=== PATIENT | female | born 1985 | race Caucasian/White ===

== ENCOUNTER 2019-04-19 11:07 | Inpatient (IN) | payer SELFPAY ==
[2019-04-19] VITALS (8 sets, daily range): BP systolic 114–124; BP diastolic 65–76; PULSE 110–122; RESP 16–26; TEMP 36.8–37.7; O2SAT 96–98; BMI 36.4
[2019-04-19 11:46] LABS: Add Manual Diff / Slide Review NO; Basophils Absolute Auto 100 /uL (0-100); Basophils Percent Auto 0.4 % (0-2); Eosinophils Absolute Auto 0 /uL (0-450); Hematocrit 35.5 % (36-46); INR 1.2 (0.9-1.3); Lymphocytes Absolute Auto 2500 /uL (1100-4500); Lymphocytes Percent Auto 12.6 % (25-40); Mean Corpuscular HGB Conc 33.9 % (30-36); Mean Corpuscular Hemoglobin 29.8 PG (26-34); Mean Corpuscular Volume 87.8 fL (80-100); Monocytes Absolute Auto 1100 /uL (0-900); Monocytes Percent Auto 5.3 % (3-14); Neutrophils Absolute Auto 16400 /uL (1500-7000); Neutrophils Percent Auto 81.7 % (50-75); Platelet Count 414 X10^3/uL (150-400); Prothrombin Time 14.1 SECONDS (10.1-12.7); Red Blood Cell Count 4.04 X10^6/uL (4.0-5.2)
[2019-04-19 11:49] LABS: PTT Partial Thromboplastin Tim 34 SECONDS (26.4-36.2)
[2019-04-19 11:51] LABS: Alanine Aminotransferase 33 IU/L (9-52); Albumin 4.2 g/dL (3.5-5.0); Albumin Globulin Ratio 1.2 (1.0-2.8); Alkaline Phosphatase 98 U/L (38-126); Aspartate Aminotransferase 28 IU/L (14-36); BUN Creatinine Ratio 14.4 (6-22); Blood Urea Nitrogen 13 mg/dL (7-17); Calcium 9.5 mg/dL (8.4-10.2); Carbon Dioxide 28 mmol/L (22-32); Chloride 101 mmol/L (98-107); Estimated Glomerular Filt Rate > 60.0 mL/min (>60); Globulin 3.6 g/dL (1.7-4.1); Glucose 129 mg/dL (70-100); HEMOLYSIS < 15 (0-50); Lipase 54 U/L (23-300); Potassium 4.1 mmol/L (3.4-5.1); Sodium 136 mmol/L (137-145); Total Protein 7.8 g/dL (6.3-8.2)
--- NOTE | 2019-04-19 11:59 | ED_ITS ---
HPI - Abdominal Pain General Chief Complaint: Abdominal Pain Stated Complaint: lower rt quad pain/n&V/fever last night Time Seen by Provider: 04/19/19 11:48 Source: patient Mode of arrival: Ambulatory Limitations: no limitations History of Present Illness HPI narrative: Patient is a 33-year-old female with history of tubal ligation and PCOS presenting with sudden onset of right lower quadrant pain which started last night. She says that she has actually had off and on for about a week or so she has put heating pad on it has progressively gotten worse. Hurts every time she moves. She denies any fevers or chills. 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 She had a UTI 2 weeks ago unsure what antibiotic she was on. She was seen by her PCP today who did a bimanual exam and noted that she had significant right adnexal tenderness. Sent to the ED for further evaluation. I spoke with PCP who read records to me: Initially seen March 19 diagnosed with UTI which grew E coli she was put on Septra. Seen again March 28 had a repeat urine, not sure she was put on more antibiotics at that time. Seen again on April 04 thought to have a yeast infection she had a Pap smear an STD screening all was negative except for HSV 2. Seen again on April 11 she was empirically given azithromycin and Rocephin. Related Data Home Medications Medication Instructions Recorded Confirmed multivitamin 1 tab PO DAILY #0 10/05/11 04/19/19 acyclovir 400 mg PO [id number] 04/19/19 04/19/19 Allergies Allergy/AdvReac Type Severity Reaction Status Date / Time No Known Drug Allergies Allergy Verified 04/19/19 12:19 Review of Systems Review of Systems Narrative: GENERAL: Denies chills, fatigue, malaise, fever, sweats, travel HEENT: Denies sinus pain, ear pain, sore throat, difficulty swallowing, neck pain RESPIRATORY: Denies dyspnea, cough, wheezing, hemoptysis, sputum. CARDIOVASCULAR: Denies chest pain, palpitations, orthopnea, edema GASTROINTESTINAL: See HPI : See HPI MUSCULOSKELETAL: Denies weakness, joint pain, or bony pain SKIN: No rash, no erythema, no pruritus NEUROLOGIC: Denies weakness, dizziness, headache, numbness, change in speech, confusion PSYCHIATRIC: No concerning psychosocial issues. 12 point review of systems is negative except for those stated above and HPI PFSH Medical History Genital herpes (Acute) Surgical History History of third molar tooth extraction Status post tubal ligation (10/09/15) Social History Smoking Status: Never smoker Family History (Updated 04/19/19 @ 16:41 by Bere Mahajan MD) Grandfather Cancer Social History Smoking Status: Never smoker Exam Initial Vital Signs Initial Vital Signs: Vital Signs Temperature 98.9 F 04/19/19 11:21 Pulse Rate 110 H 04/19/19 11:21 Respiratory Rate 20 04/19/19 11:21 Blood Pressure 118/75 04/19/19 11:21 Pulse Oximetry 97 04/19/19 11:21 GENERAL: Well-appearing, well-nourished and in no acute distress. HEENT: Head atraumatic,EOMI, pupils reactive, face symmetric CARDIOVASCULAR: Regular rate and rhythm without murmurs, rubs or gallops. RESPIRATORY: Breath sounds equal bilaterally, no wheezes rales or rhonchi. ABDOMEN: Soft, right lower quadrant tenderness no guarding or rebound, no distention mild right upper quadrant pain with positive Haert sign as well. Pelvic: White thick discharge noted no foul smell. Right adnexal tenderness no cervical tenderness no left adnexal tenderness EXTREMITIES: Normal range of motion, no clubbing or edema. Neurovascularly intact NEUROLOGICAL: Alert and oriented x4.Normal gait and speech. Cranial nerves II through XII grossly intact. SKIN: Warm, dry, no laceration, no petechiae, no rashes or lesions. Course Orders Ordered: ED Orders 04/19/19 11:30 Complete Blood Count AUTO DIFF Stat Comprehensive Metabolic Panel Stat Lipase Stat Partial Thromboplastin Time Stat Prothrombin Time INR Stat 04/19/19 12:16 US abdomen limited Stat US pelvic complete Stat 04/19/19 14:01 CT abdomen pelvis w con Stat 04/19/19 14:44 Urine Culture Stat Urine Microscopic Stat 04/19/19 15:28 Lactate (Lactic Acid) Stat Procalcitonin Stat 04/19/19 15:39 Blood Culture Stat 04/19/19 16:00 Genital Culture Stat Wet Prep Tric BV Denisse Stat 04/19/19 16:04 Chlamydia/Gonorrhea RNA APTIMA Stat Discontinued Medications Ceftriaxone Sodium/Dextrose (Rocephin) 2 gm in 50 mls @ 100 mls/hr IV NOW ONE Stop: 04/19/19 16:33 Last Infusion: 04/19/19 17:12 Dose: 0 mls/hr Documented by: Admin: 04/19/19 16:29 Dose: 100 mls/hr Documented by: BTONER Metronidazole (Flagyl) 500 mg in 100 mls @ 100 mls/hr IV NOW ONE Stop: 04/19/19 17:02 Last Admin: 04/19/19 17:39 Dose: 100 mls/hr Documented by: BTONER Sodium Chloride (Normal Saline 0.9%) 1,000 mls @ 1,000 mls/hr IV BOLUS ONE Stop: 04/19/19 17:09 Last Admin: 04/19/19 16:27 Dose: 1,000 mls/hr Documented by: BTONER Ketorolac Tromethamine (Toradol) 30 mg IV NOW ONE Stop: 04/19/19 12:17 Last Admin: 04/19/19 12:32 Dose: 30 mg Documented by: BTONER Morphine Sulfate (Morphine) 4 mg IV NOW ONE Stop: 04/19/19 16:05 Last Admin: 04/19/19 16:29 Dose: 4 mg Documented by: BTONER Vital Signs Vital signs: Vital Signs - 8 hr 04/19/19 11:21 04/19/19 15:32 04/19/19 16:00 Temperature 98.9 F Pulse Rate 110 H 113 H Respiratory Rate 20 18 Blood Pressure 118/75 Blood Pressure [Right Arm] 123/72 121/70 Pulse Oximetry 97 98 04/19/19 16:40 04/19/19 17:00 Temperature Pulse Rate 120 H 122 H Respiratory Rate 18 17 Blood Pressure Blood Pressure [Right Arm] 121/70 124/76 Pulse Oximetry 98 97 MDM - Abdominal Pain Lab Data Attestation: I reviewed the patient's lab results. Result diagrams: 04/19/19 11:30 04/19/19 11:30 Labs: Lab Results 10/11/0204/19/19 04/19/19 Range/Units 11:30 11:30 11:30 WBC 20.0 H (4.5-11.0) X10^3/uL RBC 4.04 (4.0-5.2) X10^6/uL Hgb 12.0 (12.0-16.0) g/dL Hct 35.5 L (36-46) % MCV 87.8 (80-100) fL MCH 29.8 (26-34) PG MCHC 33.9 (30-36) % RDW 14.0 (11.6-14.8) % Plt Count 414 H (150-400) X10^3/uL Neut % (Auto) 81.7 H (50-75) % Lymph % (Auto) 12.6 L (25-40) % [place] % (Auto) 5.3 (3-14) % Eos % (Auto) 0.0 L (2-4) % Baso % (Auto) 0.4 (0-2) % Neut # (Auto) 32974 H (0606-0771) /uL Lymph # (Auto) 2500 (2747-2667) /uL [place] # (Auto) 1100 H (0-900) /uL Eos # (Auto) 0 (0-450) /uL Baso # (Auto) 100 (0-100) /uL PT 14.1 H (10.1-12.7) SECONDS INR 1.2 (0.9-1.3) APTT 34 (26.4-36.2) SECONDS Sodium 136 L (137-145) mmol/L Potassium 4.1 (3.4-5.1) mmol/L Chloride 101 (98-107) mmol/L Carbon Dioxide 28 (22-32) mmol/L BUN 13 (7-17) mg/dL Creatinine 0.90 (0.52-1.04) mg/dL Estimated GFR > 60.0 (>60) mL/min BUN/Creatinine Ratio 14.4 (6-22) Glucose 129 H (70-100) mg/dL Lactate (0.7-2.1) mmol/L Calcium 9.5 (8.4-10.2) mg/dL Total Bilirubin 1.0 (0.2-1.3) mg/dL AST 28 (14-36) IU/L ALT 33 (9-52) IU/L Alkaline Phosphatase 98 (38-126) U/L Total Protein 7.8 (6.3-8.2) g/dL Albumin 4.2 (3.5-5.0) g/dL Globulin 3.6 (1.7-4.1) g/dL Albumin/Globulin Ratio 1.2 (1.0-2.8) Lipase 54 (23-300) U/L Procalcitonin (<0.5) ng/mL Urine RBC (0-5/HPF) Urine WBC (0-5/HPF) Ur Squamous Epith Cells (0-5/HPF) Amorphous Sediment Urine Bacteria (None) Urine Mucus (Negative) Ur Culture Indicated? 04/19/19 04/19/19 04/19/19 Range/Units 14:44 15:28 15:28 WBC (4.5-11.0) X10^3/uL RBC (4.0-5.2) X10^6/uL Hgb (12.0-16.0) g/dL Hct (36-46) % MCV (80-100) fL MCH (26-34) PG MCHC (30-36) % RDW (11.6-14.8) % Plt Count (150-400) X10^3/uL Neut % (Auto) (50-75) % Lymph % (Auto) (25-40) % [place] % (Auto) (3-14) % Eos % (Auto) (2-4) % Baso % (Auto) (0-2) % Neut # (Auto) (9141-4968) /uL Lymph # (Auto) (2667-1995) /uL [place] # (Auto) (0-900) /uL Eos # (Auto) (0-450) /uL Baso # (Auto) (0-100) /uL PT (10.1-12.7) SECONDS INR (0.9-1.3) APTT (26.4-36.2) SECONDS Sodium (137-145) mmol/L Potassium (3.4-5.1) mmol/L Chloride (98-107) mmol/L Carbon Dioxide (22-32) mmol/L BUN (7-17) mg/dL Creatinine (0.52-1.04) mg/dL Estimated GFR (>60) mL/min BUN/Creatinine Ratio (6-22) Glucose (70-100) mg/dL Lactate 1.0 (0.7-2.1) mmol/L Calcium (8.4-10.2) mg/dL Total Bilirubin (0.2-1.3) mg/dL AST (14-36) IU/L ALT (9-52) IU/L Alkaline Phosphatase (38-126) U/L Total Protein (6.3-8.2) g/dL Albumin (3.5-5.0) g/dL Globulin (1.7-4.1) g/dL Albumin/Globulin Ratio (1.0-2.8) Lipase (23-300) U/L Procalcitonin 0.45 (<0.5) ng/mL Urine RBC 1-5/hpf (0-5/HPF) Urine WBC 5-10/hpf H (0-5/HPF) Ur Squamous Epith Cells 1-5 /hpf (0-5/HPF) Amorphous Sediment 2+ Urine Bacteria Moderate (10-30) H (None) Urine Mucus 2+ H (Negative) Ur Culture Indicated? Specimen cultured Point of care testing: Point of Care Testing Test Results Negative Urine Dip Bedside Urine Glucose Negative Bedside Urine Bilirubin + 1 Bedside Urine Ketone +/- 5 Urine Specific [place] 1.015 Bedside Urine Occult Blood + Bedside Urine pH 6.0 Bedside Urine Protein + 30 Bedside Urine Urobilinogen +/- 1mg Bedside Urine Nitrite - Negative Bedside Urine Leukocytes + 70 Esterase Imaging Data US - abdomen: Radiologist's impression: PROCEDURE: US ABDOMEN LIMITED INDICATIONS: RUQ PAIN TECHNIQUE: Real-time focused scanning was performed of the abdomen, with image documentation. COMPARISON: None. FINDINGS: Liver unremarkable, although mildly enlarged measuring 19.2 cm. Gallbladder unremarkable except for 2 mm incidental polyp. No gallstones. No wall thickening, para cholecystic fluid or sonographic Heart sign. An umbilical dilatation. The pancreas is unremarkable. Right kidney measures 11.0 cm in unremarkable. Left kidney within normal limits measuring 12.0 cm IMPRESSION: Incidental gallbladder polyp. No evidence of acute cholecystitis. Dictated by: Giuliano Foreman M.D. on 04/19/2019 at 13:38 pelvic us: Radiologist's impression: PROCEDURE: US PELVIC COMPLETE INDICATIONS: RLQ PAIN, HX OF PCOS TECHNIQUE: Real-time scanning was performed of the pelvic organs, with image documentation. Additional endovaginal scanning was necessary due to incomplete visualization of the adnexal and endometrial structures by transabdominal scanning. COMPARISON: [facility], PELVIC COMPLETE, 10/06/2015, 12:02. FINDINGS: Transabdominal scanning: Limited scanning through the kidneys shows no hydronephrosis. Mildly complex fluid in the region of the right ovary Endovaginal scanning: Uterus: Uterus is normal in size at 10.0 x 3.9 cm. The endometrium measures 8- 9 mm in combined thickness. Uterus is anteverted. The right uterine horn appears mildly prominent with hyperemia, nonspecific finding. 8mm possible ureterocele versus adherent non-shadowing calculus. Ovaries: The ovaries are unremarkable bilaterally, demonstrating expected physiologic follicular change. The right ovary measures 5.2 x 3.0 x 3.1 cm. The left ovary measures 4.7 x 3.0 x 2.8 cm IMPRESSION: Unremarkable appearance of the ovaries. Mild complex fluid in the region of the right adnexa, nonspecific finding. There is also prominence and hyperemic appearance of the right uterine horn wh ich could represent inflammation however technically nonspecific Incidentally noted left-sided ureterocele versus adherent calculus (given patient age). Dictated by: Giuliano Foreman M.D. on 04/19/2019 at 13:39 Approved by: Giuliano Foreman M.D. on 04/19/2019 at 13:46 CT scan - abdomen: Radiologist's impression: PROCEDURE: CT ABDOMEN PELVIS W CON INDICATIONS: rlq pain TECHNIQUE: After the administration of intravenous contrast, 5 mm thick sections acquired from the diaphragm to the symphysis. 5 mm coronal and sagittal reformats were acquired. For radiation dose reduction, the following was used: automated exposure control, adjustment of mA and/or kV according to patient size. COMPARISON: [facility], PELVIC COMPLETE, 04/19/2019, 12:51. FINDINGS: Image quality: Excellent. ABDOMEN: Lung bases: Lung bases are clear. Heart size is normal. Solid organs: Liver is normal in size and enhancement. Gallbladder is normal limits. Biliary system is non dilated. Pancreas enhances normally. Spleen is normal in size and enhancement. No adrenal nodules. Kidneys demonstrate normal size and enhancement, without hydronephrosis. Peritoneum and bowel: The appendix is visualized and is normal. Mild pericecal inflammatory changes are noted. There is mild cecal wall thickening. Mildly distended loops of fluid-filled small bowel noted in the right lower quadrant including the terminal ileum. Mild inflammatory changes noted adjacent to the right fallopian tube. No free air. A small amount of free fluid noted in the cul-de-sac of the pelvis. There is a small, approximately 2 cm in diameter fluid collection with partial peripheral enhancement situated between the cecum and the broad ligament which may represent early abscess. Nodes and vessels: No retroperitoneal or mesenteric adenopathy by size criteria. Aorta and inferior vena cava are normal in size. Miscellaneous: No ventral hernias. PELVIS: Genitourinary: Bladder wall thickness is normal. Miscellaneous: No inguinal hernias. Bilateral enlarged inguinal lymph nodes are noted. Bones: No suspicious bony lesions. No vertebral body compression fractures. IMPRESSION: 1. No evidence of appendicitis. 2. Nonspecific right lower quadrant inflammatory changes involving the cecum, loops of small bowel in the right fallopian tube. Differential includes colitis, inflammatory bowel disease, typhlitis or salpingitis. 3. 2 cm partially walled off right lower quadrant fluid collection situated between the cecum and the broad ligament concerning for early abscess. 4. Bilateral inguinal lymphadenopathy which could be reactive or neoplastic. 5. Findings discussed with Dr. Sage on 04/19/2019 at 1505 hrs. Dictated by: Rose Marie Jones MD, PhD on 04/19/2019 at 14:36 MDM Narrative Medical decision making narrative: Patient is quite tender in her right lower quadrant. Ultrasound did show complex fluid in the right adnexa and she does have leukocytosis of 20,000. Will get a CT. CT shows probable abscess of 2 cm in the right lower quadrant between the cecum and broad ligament. I spoke with Radiology who could not determine if this was a tubo-ovarian abscess or s omething else. Initially consulted surgery Dr. Mahajan, who saw patient in the ED at bedside agreed with buffing wheel raker consultation likely admit to Medicine with broad-spectrum IV antibiotics and see how she responds. I spoke with buffing wheel raker Dr. Hernandez ENGRAVER COPPERPLATE, also evaluated in in the ED. Agrees with surgery IV antibiotics and surgery if no improvement. At this time agrees with Jen and Kulwinder Nelson, updated on patient's symptoms test results agrees with admission in antibiotic Discharge Plan Departure Patient Disposition: Admitted As Inpatient Clinical Impression: Right tubo-ovarian abscess Discharge Date/Time: 04/19/19 17:58 Admit Date/Time: 04/19/19 17:24 Admit Provider: Zoila Hernandez
--- NOTE | 2019-04-19 12:16 | DI.US.S_ITS ---
PROCEDURE: US ABDOMEN LIMITED INDICATIONS: RUQ PAIN TECHNIQUE: Real-time focused scanning was performed of the abdomen, with image documentation. COMPARISON: None. FINDINGS: Liver unremarkable, although mildly enlarged measuring 19.2 cm. Gallbladder unremarkable except for 2 mm incidental polyp. No gallstones. No wall thickening, para cholecystic fluid or sonographic Heart sign. An umbilical dilatation. The pancreas is unremarkable. Right kidney measures 11.0 cm in unremarkable. Left kidney within normal limits measuring 12.0 cm IMPRESSION: Incidental gallbladder polyp. No evidence of acute cholecystitis. Dictated by: Giuliano Foreman M.D. on 04/19/2019 at 13:38 Approved by: Giuliano Foreman M.D. on 04/19/2019 at 13:39
--- NOTE | 2019-04-19 12:16 | DI.US.S_ITS ---
PROCEDURE: US PELVIC COMPLETE INDICATIONS: RLQ PAIN, HX OF PCOS TECHNIQUE: Real-time scanning was performed of the pelvic organs, with image documentation. Additional endovaginal scanning was necessary due to incomplete visualization of the adnexal and endometrial structures by transabdominal scanning. COMPARISON: [facility], [place], PELVIC COMPLETE, 10/06/2015, 12:02. FINDINGS: Transabdominal scanning: Limited scanning through the kidneys shows no hydronephrosis. Mildly complex fluid in the region of the right ovary Endovaginal scanning: Uterus: Uterus is normal in size at 10.0 x 3.9 cm. The endometrium measures 8-9 mm in combined thickness. Uterus is anteverted. The right uterine horn appears mildly prominent with hyperemia, nonspecific finding. 8mm possible ureterocele versus adherent non-shadowing calculus. Ovaries: The ovaries are unremarkable bilaterally, demonstrating expected physiologic follicular change. The right ovary measures 5.2 x 3.0 x 3.1 cm. The left ovary measures 4.7 x 3.0 x 2.8 cm IMPRESSION: Unremarkable appearance of the ovaries. Mild complex fluid in the region of the right adnexa, nonspecific finding. There is also prominence and hyperemic appearance of the right uterine horn which could represent inflammation however technically nonspecific Incidentally noted left-sided ureterocele versus adherent calculus (given patient age). Dictated by: Giuliano Foreman M.D. on 04/19/2019 at 13:39 Approved by: Giuliano Foreman M.D. on 04/19/2019 at 13:46
[2019-04-19] MEDS: KETOROLAC 60 MG/2 ML VIAL 30 MG IV (12:32)
--- NOTE | 2019-04-19 14:01 | DI.CT.S_ITS ---
PROCEDURE: CT ABDOMEN PELVIS W CON INDICATIONS: rlq pain TECHNIQUE: After the administration of intravenous contrast, 5 mm thick sections acquired from the diaphragm to the symphysis. 5 mm coronal and sagittal reformats were acquired. For radiation dose reduction, the following was used: automated exposure control, adjustment of mA and/or kV according to patient size. COMPARISON: [facility], , [place] PELVIC COMPLETE, 04/19/2019, 12:51. FINDINGS: Image quality: Excellent. ABDOMEN: Lung bases: Lung bases are clear. Heart size is normal. Solid organs: Liver is normal in size and enhancement. Gallbladder is normal limits. Biliary system is non dilated. Pancreas enhances normally. Spleen is normal in size and enhancement. No adrenal nodules. Kidneys demonstrate normal size and enhancement, without hydronephrosis. Peritoneum and bowel: The appendix is visualized and is normal. Mild pericecal inflammatory changes are noted. There is mild cecal wall thickening. Mildly distended loops of fluid-filled small bowel noted in the right lower quadrant including the terminal ileum. Mild inflammatory changes noted adjacent to the right fallopian tube. No free air. A small amount of free fluid noted in the cul-de-sac of the pelvis. There is a small, approximately 2 cm in diameter fluid collection with partial peripheral enhancement situated between the cecum and the broad ligament which may represent early abscess. Nodes and vessels: No retroperitoneal or mesenteric adenopathy by size criteria. Aorta and inferior vena cava are normal in size. Miscellaneous: No ventral hernias. PELVIS: Genitourinary: Bladder wall thickness is normal. Miscellaneous: No inguinal hernias. Bilateral enlarged inguinal lymph nodes are noted. Bones: No suspicious bony lesions. No vertebral body compression fractures. IMPRESSION: 1. No evidence of appendicitis. 2. Nonspecific right lower quadrant inflammatory changes involving the cecum, loops of small bowel in the right fallopian tube. Differential includes colitis, inflammatory bowel disease, typhlitis or salpingitis. 3. 2 cm partially walled off right lower quadrant fluid collection situated between the cecum and the broad ligament concerning for early abscess. 4. Bilateral inguinal lymphadenopathy which could be reactive or neoplastic. 5. Findings discussed with Dr. Sage on 04/19/2019 at 1505 hrs. Dictated by: Rose Marie Jones MD, PhD on 04/19/2019 at 14:36 Approved by: Rose Marie Jones MD, PhD on 04/19/2019 at 15:07
[2019-04-19 15:11] LABS: RBC Urine 1-5/HPF (0-5/HPF); WBC Urine 5-10/HPF (0-5/HPF)
[2019-04-19 15:12] LABS: Amorphous Sediment Urine 2+; Bacteria Urine Moderate (10-30); Culture Indicated Urine Specimen Cultured; Mucus Urine 2+ (Negative); Squamous Epithelial Cell Urine 1-5 /HPF (0-5/HPF)
[2019-04-19 16:14] LABS: Procalcitonin 0.45 ng/mL (<0.5)
[2019-04-19] MEDS: SODIUM CHLORIDE 0.9% 1,000 ML 1000 ML IV (16:27)
[2019-04-19] MEDS: CEFTRIAXONE 2 GM/50 ML FROZ.PIGGY IV (16:29)
[2019-04-19] MEDS: MORPHINE 4 MG/ML INJ IV (16:29)
--- NOTE | 2019-04-19 16:35 | PM.CN ---
History of Present Illness Consult details Date Patient Seen: 04/19/19 Time Patient Seen: 16:36 Chief complaint: lower rt quad pain/n&V/fever last night Reason for consult: Possible colitis Requesting provider: Maria C Sage Narrative: This is a 33-year-old woman with history of obesity, herpes virus current we being treated, and tubal ligation comes into the ER today with complaint of 4 days of worsening abdominal pain, worst in the right lower quadrant. On CT scan she was found to have an inflammatory process which is described as a ?nonspecific right lower quadrant inflammatory process.Per the radiologist this imaging finding may indicate colitis, IBD, or inflammatory process of the tubo-ovarian structures. There is a 2 cm partially walled off fluid collection between the cecum and broad ligament. The patient denies any history of unexplained weight loss, rectal bleeding, melena, constipation, or diarrhea. However she has had diarrhea for the last few days while she has been having this pain. Her white blood cell count is 20. PFSH Medical History Genital herpes (Acute) Surgical History History of third molar tooth extraction Status post tubal ligation (10/09/15) Social History Smoking Status: Never smoker Family History (Updated 04/19/19 @ 16:41 by Bere Mahajan MD) Grandfather Cancer Social History Smoking Status: Never smoker Meds Home Medications and Allergies Home Medications Medication Instructions Recorded Confirmed Type multivitamin 1 tab PO DAILY #0 10/05/11 04/19/19 History acyclovir 400 mg PO [id number] 04/19/19 04/19/19 History Allergies Allergy/AdvReac Type Severity Reaction Status Date / Time No Known Drug Allergies Allergy Verified 04/19/19 12:19 Review of Systems Review of Systems Narrative: All systems reviewed and unremarkable except as noted in HPI and below Exam Vital Signs (past 8 hours): - 04/19/19 11:21 04/19/19 15:32 04/19/19 16:00 Temperature 98.9 F Pulse Rate 110 H 113 H Respiratory Rate 20 18 Blood Pressure 118/75 Blood Pressure [Right Arm] 123/72 121/70 Pulse Oximetry 97 98 Oxygen Delivery Method Room Air Narrative Exam Narrative: GENERAL: Well groomed and cooperative. Appears stated age. Answers questions promptly and appropriately. Vital signs noted. HENT: Normocephalic, atraumatic. Hearing intact. Oral mucosa is pink and moist. EYES: Conjunctiva pink, sclera white, no periorbital swelling. CARDIOVASCULAR: Regular rate. No pedal edema. RESPIRATORY: Normal respiratory rate, breathing comfortably on room air. GASTROINTESTINAL: Abdomen soft and non-distended; moderate tenderness to palpation in bilateral lower quadrants, right greater than left GENITALURINARY: No flank tenderness. MUSCULOSKELETAL: Normal gait and coordination. Equal tone and mass bilaterally. SKIN: Warm, dry, soft, appropriate color for ethnicity. No other lesions, rashes, or wounds. NEURO: Alert and Oriented X 3. Good coordination. No ataxia, or sensory deficits, or cognitive issues. PSYCH: Appropriate affect and mood. Objective Imaging CT scan - abdomen: Radiologist's impression: 2 04/19/19 14:01 Rose Marie Jones 04/19/19 12:16 Giuliano Foreman 04/19/19 12:16 Giuliano Foreman Jennifer L 33, [id number] [facility], Main ED R08 PROCEDURE: CT ABDOMEN PELVIS W CON INDICATIONS: rlq pain TECHNIQUE: After the administration of intravenous contrast, 5 mm thick sections acquired from the diaphragm to the symphysis. 5 mm coronal and sagittal reformats were acquired. For radiation dose reduction, the following was used: automated exposure control, adjustment of mA and/or kV according to patient size. COMPARISON: [facility], , [place] PELVIC COMPLETE, 04/19/2019, 12:51. FINDINGS: Image quality: Excellent. ABDOMEN: Lung bases: Lung bases are clear. Heart size is normal. Solid organs: Liver is normal in size and enhancement. Gallbladder is normal limits. Biliary system is non dilated. Pancreas enhances normally. Spleen is normal in size and enhancement. No adrenal nodules. Kidneys demonstrate normal size and enhancement, without hydronephrosis. Peritoneum and bowel: The appendix is visualized and is normal. Mild pericecal inflammatory changes are noted. There is mild cecal wall thickening. Mildly distended loops of fluid-filled small bowel noted in the right lower quadrant including the terminal ileum. Mild inflammatory changes noted adjacent to the right fallopian tube. No free air. A small amount of free fluid noted in the cul-de-sac of the pelvis. There is a small, approximately 2 cm in diameter fluid collection with partial peripheral enhancement situated between the cecum and the broad ligament which may represent early abscess. Nodes and vessels: No retroperitoneal or mesenteric adenopathy by size criteria. Aorta and inferior vena cava are normal in size. Miscellaneous: No ventral hernias. PELVIS: Genitourinary: Bladder wall thickness is normal. Miscellaneous: No inguinal hernias. Bilateral enlarged inguinal lymph nodes are noted. Bones: No suspicious bony lesions. No vertebral body compression fractures. IMPRESSION: 1. No evidence of appendicitis. 2. Nonspecific right lower quadrant inflammatory changes involving the cecum, loops of small bowel in the right fallopian tube. Differential includes colitis, inflammatory bowel disease, typhlitis or salpingitis. 3. 2 cm partially walled off right lower quadrant fluid collection situated between the cecum and the broad ligament concerning for early abscess. 4. Bilateral inguinal lymphadenopathy which could be reactive or neoplastic. 5. Findings discussed with Dr. Sage on 04/19/2019 at 1505 hrs. Dictated by: Rose Marie Jones MD, PhD on 04/19/2019 at 14:36 Approved by: Rose Marie Jones MD, PhD on 04/19/2019 at 15:07 Labs Result Diagrams: 04/19/19 11:30 04/19/19 11:30 Labs: Laboratory Results - last 24 hr 04/19/19 04/19/19 04/19/19 11:30 11:30 11:30 WBC 20.0 H RBC 4.04 Hgb 12.0 Hct 35.5 L MCV 87.8 MCH 29.8 MCHC 33.9 RDW 14.0 Plt Count 414 H Neut % (Auto) 81.7 H Lymph % (Auto) 12.6 L [place] % (Auto) 5.3 Eos % (Auto) 0.0 L Baso % (Auto) 0.4 Neut # (Auto) 58035 H Lymph # (Auto) 2500 [place] # (Auto) 1100 H Eos # (Auto) 0 Baso # (Auto) 100 PT 14.1 H INR 1.2 APTT 34 Sodium 136 L Potassium 4.1 Chloride 101 Carbon Dioxide 28 BUN 13 Creatinine 0.90 Estimated GFR > 60.0 BUN/Creatinine Ratio 14.4 Glucose 129 H Lactate Calcium 9.5 Total Bilirubin 1.0 AST 28 ALT 33 Alkaline Phosphatase 98 Total Protein 7.8 Albumin 4.2 Globulin 3.6 Albumin/Globulin Ratio 1.2 Lipase 54 Procalcitonin Urine RBC Urine WBC Ur Squamous Epith Cells Amorphous Sediment Urine Bacteria Urine Mucus Ur Culture Indicated? 04/19/19 04/19/19 04/19/19 14:44 15:28 15:28 WBC RBC Hgb Hct MCV MCH MCHC RDW Plt Count Neut % (Auto) Lymph % (Auto) [place] % (Auto) Eos % (Auto) Baso % (Auto) Neut # (Auto) Lymph # (Auto) [place] # (Auto) Eos # (Auto) Baso # (Auto) PT INR APTT Sodium Potassium Chloride Carbon Dioxide BUN Creatinine Estimated GFR BUN/Creatinine Ratio Glucose Lactate 1.0 Calcium Total Bilirubin AST ALT Alkaline Phosphatase Total Protein Albumin Globulin Albumin/Globulin Ratio Lipase Procalcitonin 0.45 Urine RBC 1-5/hpf Urine WBC 5-10/hpf H Ur Squamous Epith Cells 1-5 /hpf Amorphous Sediment 2+ Urine Bacteria Moderate (10-30) H Urine Mucus 2+ H Ur Culture Indicated? Specimen cultured Assessment & Plan Assessment and plan (1) Right-sided abdominal pain of unknown cause: Current visit: Yes Status: Acute (2) Intra-abdominal abscess: Current visit: Yes Status: Acute (3) Leukocytosis: Current visit: Yes Status: Acute Assessment & Plan narrative: This is a 33-year-old woman with a unclear right lower quadrant inflammatory process. She denies any history of swallowing fissure chicken bones or tooth pick which could cause a perforation resulting in this clinical picture. She denies any history that is indicative of inflammatory bowel disease, or neoplastic process. CT scan is inconsistent with appendicitis. The ER is planning to consult the CONTRACT TECHNICAL WRITER doctors. I will also follow along. At this point I would treat her with broad-spectrum antibiotics, and follow her clinically. If her white blood cell count and exam do not improve, I would go ahead with diagnostic laparoscopy, and treat what we find. If she does improve clinically on antibiotics I would consider reimaging her with ultrasound or possibly CT scan if necessary, to re-evaluate the inflammatory process and associated fluid collection in the abdomen at that time. Recommendations: Follow-up CONTRACT TECHNICAL WRITER consult further recommendations NPO except for clear liquids and meds Broad spectrum IV antibiotics Ambulate as tolerated Daily labs Repeat imaging if improving clinically Diagnostic laparoscopy if not improving Time Spent With Patient Time with patient: 25 - 35 minutes
[2019-04-19] MEDS: metroNIDAZOLE 500 MG/100 ML PIGGYBACK 100 MG IV ×2 (17:39→23:47)
--- NOTE | 2019-04-19 19:26 | PM.CN ---
History of Present Illness Consult details Date Patient Seen: 04/19/19 Time Patient Seen: 17:00 Chief complaint: lower rt quad pain/n&V/fever last night Reason for consult: Rule out PID Requesting provider: Maria C Sage Narrative: Patient is a 33-year-old para 3 status post tubal ligation who has been having right lower quadrant pain on and off for a week but had significant increase in pain today and was sent to the emergency room by her primary care physician Dr. Nielsen. Patient states that the pain started in the right lower quadrant, would come and go and she had some diarrhea. When the pain increased today she was feeling nauseated. The pain is better when she is lying still but increases with movement. She denies fevers. She denies any urinary symptoms. She has a new sexual partner and was recently diagnosed with HSV 2. Other than the tubal ligation the patient denies any abdominal surgery. Patient denies any other significant medical issues. After meeting with the patient I a was informed by Dr. Nielsen that the patient was treated for a UTI several weeks ago, returned with continued discomfort and was evaluated by Pap smear and culture was with negative GC and Chlamydia but positive HSV 2. She returns still uncomfortable so was given ceftriaxone and 1 g of azithromycin on 04/11/2019. Dr. Nielsen was concerned because of a remote history of a tooth abscess and a vulvar abscess that required 10 days of IV antibiotics. PENDING SALE TO [facility] Medical History Genital herpes (Acute) Surgical History History of third molar tooth extraction Status post tubal ligation (10/09/15) Social History Smoking Status: Never smoker Family History (Updated 04/19/19 @ 16:41 by Bere Mahajan MD) Grandfather Cancer Social History household members: family Smoking Status: Never smoker Meds Home Medications and Allergies Home Medications Medication Instructions Recorded Confirmed Type multivitamin 1 tab PO DAILY #0 10/05/11 04/19/19 History acyclovir 400 mg PO [id number] 04/19/19 04/19/19 History Allergies Allergy/AdvReac Type Severity Reaction Status Date / Time No Known Drug Allergies Allergy Verified 04/19/19 12:19 Exam Vital Signs (past 8 hours): - 04/19/19 15:32 04/19/19 16:00 04/19/19 16:40 Pulse Rate 113 H 120 H Respiratory Rate 18 18 Blood Pressure [Right Arm] 123/72 121/70 121/70 Pulse Oximetry 98 98 04/19/19 17:00 04/19/19 18:01 Pulse Rate 122 H 118 H Respiratory Rate 17 16 Blood Pressure [Right Arm] 124/76 114/75 Pulse Oximetry 97 96 Oxygen Delivery Method Room Air Narrative Exam Narrative: HEENT exam within normal limits. Lungs are clear to auscultation percussion. Heart is regular rate and rhythm tachycardic but no murmurs appreciated. No thyromegaly. Abdomen is soft with tenderness throughout the abdomen, more so in the right lower quadrant, without rebound. Extremities without edema and nontender. See 's note for pelvic exam which was not repeated. Objective Labs Result Diagrams: 04/19/19 11:30 04/19/19 11:30 Labs: Laboratory Results - last 24 hr 04/19/19 04/19/19 04/19/19 11:30 11:30 11:30 WBC 20.0 H RBC 4.04 Hgb 12.0 Hct 35.5 L MCV 87.8 MCH 29.8 MCHC 33.9 RDW 14.0 Plt Count 414 H Neut % (Auto) 81.7 H Lymph % (Auto) 12.6 L [place] % (Auto) 5.3 Eos % (Auto) 0.0 L Baso % (Auto) 0.4 Neut # (Auto) 19947 H Lymph # (Auto) 2500 [place] # (Auto) 1100 H Eos # (Auto) 0 Baso # (Auto) 100 PT 14.1 H INR 1.2 APTT 34 Sodium 136 L Potassium 4.1 Chloride 101 Carbon Dioxide 28 BUN 13 Creatinine 0.90 Estimated GFR > 60.0 BUN/Creatinine Ratio 14.4 Glucose 129 H Lactate Calcium 9.5 Total Bilirubin 1.0 AST 28 ALT 33 Alkaline Phosphatase 98 Total Protein 7.8 Albumin 4.2 Globulin 3.6 Albumin/Globulin Ratio 1.2 Lipase 54 Procalcitonin Urine RBC Urine WBC Ur Squamous Epith Cells Amorphous Sediment Urine Bacteria Urine Mucus Ur Culture Indicated? 04/19/19 04/19/19 04/19/19 14:44 15:28 15:28 WBC RBC Hgb Hct MCV MCH MCHC RDW Plt Count Neut % (Auto) Lymph % (Auto) [place] % (Auto) Eos % (Auto) Baso % (Auto) Neut # (Auto) Lymph # (Auto) [place] # (Auto) Eos # (Auto) Baso # (Auto) PT INR APTT Sodium Potassium Chloride Carbon Dioxide BUN Creatinine Estimated GFR BUN/Creatinine Ratio Glucose Lactate 1.0 Calcium Total Bilirubin AST ALT Alkaline Phosphatase Total Protein Albumin Globulin Albumin/Globulin Ratio Lipase Procalcitonin 0.45 Urine RBC 1-5/hpf Urine WBC 5-10/hpf H Ur Squamous Epith Cells 1-5 /hpf Amorphous Sediment 2+ Urine Bacteria Moderate (10-30) H Urine Mucus 2+ H Ur Culture Indicated? Specimen cultured Assessment & Plan Assessment and plan (1) Right-sided abdominal pain of unknown cause: Current visit: Yes Status: Acute (2) Intra-abdominal abscess: Current visit: Yes Status: Acute (3) Genital herpes: Current visit: Yes Status: Acute Assessment & Plan narrative: 33-year-old female with elevated white blood cell count, CT scan concerning for possible inflammation and early possible abscess in the right lower quadrant. It would be extremely unusual for a tubal ovarian abscess to form in a woman with a negative GC and chlamydia culture and prior tubal ligation. I discussed the case with who also is not sure of the cause for the CT findings. We discussed whether to do IV antibiotics with follow-up or proceed with laparoscopy for diagnosis. Decision was made to start IV antibiotics and monitor for improvement . If no improvement laparoscopy at that point. I also discuss this with Dr. Nielsen and her covering physician Dr. Buitrago.
[2019-04-19] MEDS: MORPHINE 2 MG/ML INJ IV ×3 (19:36→23:56)
--- NOTE | 2019-04-19 21:25 | P.HP_ITS ---
History of Present Illness History of Present Illness Date Patient Seen: 04/19/19 Time Patient Seen: 21:25 Chief complaint: lower rt quad pain/n&V/fever last night Narrative: 33 year old female is admitted from the ED secondary to right lower quadrant pain of unknown origin x 1 day, non-radiating. Reports that the pain woke her up from sleep last night and lasted for about 20 minutes. Prior to going to bed, she took a hot bath because she had been having diarrhea for the past 5 days. Has been feeling residual pain throughout the day today and her stomach continues to be tender. Associated bloating but not tympanic distention. She has been passing stool but they continue to get more watery. Denies melena, hematochezia, or mucous in her stools. Afebrile. Has had nausea but no vomiting. Her LMP was 02/26/19, has PCOS and is irregular. Had 2 days of light bleeding in March. It was not a true period. Underwent a BTL in 2015 after an IUD perforated her uterus and she needed to have it surgically removed. Uterine perforation was repaired with cautery. She had routine post- operative follow up and seemed to heal uneventfully from the procedure. Approximately 1 month ago, on 03/19/19, she was placed on a 7 day course of Bactrim for an e-coli UTI, reynolds-sensitve. Denied STI risk at that time. One week later, she returned to clinic complaining of vulvar sores x 1 day. Reported 2 sexual partners in the previous month that were new, condoms used both times. A few months prior to that, was having regular vaginal, rectal, and oral intercourse without a condom with her who had been, unbeknownst to her, unfaithful to her for 18 months. She is not aware if any of these three partners are currently sick with STIs. Full STI workup, significant only for HSV-2, treated prophylactically with azithromycin 1 g x 1 and rocephin 250 mg IM x 1 on 04/11/19; and, definitively with Acyclovir 400 mg PO tid, on 04/12/19, on day 8/10. Vulvuar lesions have improved and are mostly resolved. Vaginal discharge much improved. CT scan in the ED today showed a non-specific right lower quadrant inflammatory change involving the cecum, loops of small bowel, and the right fallopian tube. Also, a 2 cm partially walled off right lower quadrant fluid collection was situated between the cecum and the broad ligament, concerning for early abscess. Bilateral inguinal lymphadenopathy was seen, reactive or neoplastic etiolgy unclear. WBC 20. Dr. Mahajan, general surgery and Dr. Hernandez, ARTIFICIAL TEETH INSPECTOR have both consulted and advise treating with broad spectrum antibiotics prior to an exploratory laporotomy. It patient has a good clinical response to antibiotics, recommendation was made to repeat the US/CT. If response is not good, recommended proceeding to surgery. Past Medical History: Perforated Uterus secondary to IUD placement PCOS HSV II Past Surgical History: BTL Absess (drained in high school) [place] teeth Family History: Father: heart disease Mother: diabetes Siblings: hematuria Social History: recently. Lives with her parents and two children. 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 Patient History Medical History Genital herpes (Acute) Surgical History History of third molar tooth extraction Status post tubal ligation (10/09/15) Social History Smoking Status: Never smoker Family & Social History Family History (Updated 04/19/19 @ 16:41 by Bere Mahajan MD) Grandfather Cancer Social History: household members family Prior Living Arrangements House Safety & Behavioral: Feels Safe in Current Yes Environment Been Physically Hurt or No Threatened By a Person Suicidal Ideation Description None Suicide Plan Description No Plan Tobacco & Substance use: Smoking Status Never smoker alcohol intake frequency a few times a week Substance Use Type marijuana Meds Home Medications and Allergies Home Medications Medication Instructions Recorded Confirmed Type multivitamin 1 tab PO DAILY #0 10/05/11 04/19/19 History acyclovir 400 mg PO [id number] 04/19/19 04/19/19 History Allergies Allergy/AdvReac Type Severity Reaction Status Date / Time No Known Drug Allergies Allergy Verified 04/19/19 12:19 Review of Systems Review of Systems ROS Unobtainable: All systems reviewed & are unremarkable except as noted in HPI and below Exam Vital Signs (past 8 hours): - 04/19/19 15:32 04/19/19 16:00 04/19/19 16:40 Pulse Rate 113 H 120 H Respiratory Rate 18 18 Blood Pressure [Right Arm] 123/72 121/70 121/70 Pulse Oximetry 98 98 04/19/19 17:00 04/19/19 18:01 Pulse Rate 122 H 118 H Respiratory Rate 17 16 Blood Pressure [Right Arm] 124/76 114/75 Pulse Oximetry 97 96 Oxygen Delivery Method Room Air Narrative Exam Narrative: GENERAL: Alert and oriented, appearing stated age and in no acute distress. HEENT: Head normocephalic/atraumatic. LUNGS: Clear to ausculation bilaterally, no wheezes, rhonchi or rales. CV: Normal S1 and S2 with regular rate and rhythm, no audible murmurs, rubs or gallops. BREASTS: Symmetric, no masses or lesions. No nipple retraction or discharge. No supraclavicular or axillary lymphadenopathy. ABDOMEN: Soft, tenderness generalized to light touch. Point of maximal intensity over RLQ. Mildly distended, no organomegaly. Positive bowel sounds. : Normal female external genitalia, vulvar lesions now almost totally healed, one small healing ulcer on left labia majora can be visualized. EXTREMITIES: No clubbing, cyanosis, or edema. NEURO: Cranial nerves II through XII grossly intact, no focal deficits. PSYCH: Alert and oriented x 3. SKIN: No concerning lesions. Objective Labs Result Diagrams: 04/19/19 11:30 04/19/19 11:30 Labs: Laboratory Results - last 24 hr 04/19/19 04/19/19 04/19/19 11:30 11:30 11:30 WBC 20.0 H RBC 4.04 Hgb 12.0 Hct 35.5 L MCV 87.8 MCH 29.8 MCHC 33.9 RDW 14.0 Plt Count 414 H Neut % (Auto) 81.7 H Lymph % (Auto) 12.6 L [place] % (Auto) 5.3 Eos % (Auto) 0.0 L Baso % (Auto) 0.4 Neut # (Auto) 39428 H Lymph # (Auto) 2500 [place] # (Auto) 1100 H Eos # (Auto) 0 Baso # (Auto) 100 PT 14.1 H INR 1.2 APTT 34 Sodium 136 L Potassium 4.1 Chloride 101 Carbon Dioxide 28 BUN 13 Creatinine 0.90 Estimated GFR > 60.0 BUN/Creatinine Ratio 14.4 Glucose 129 H Lactate Calcium 9.5 Total Bilirubin 1.0 AST 28 ALT 33 Alkaline Phosphatase 98 Total Protein 7.8 Albumin 4.2 Globulin 3.6 Albumin/Globulin Ratio 1.2 Lipase 54 Procalcitonin Urine RBC Urine WBC Ur Squamous Epith Cells Amorphous Sediment Urine Bacteria Urine Mucus Ur Culture Indicated? 04/19/19 04/19/19 04/19/19 14:44 15:28 15:28 WBC RBC Hgb Hct MCV MCH MCHC RDW Plt Count Neut % (Auto) Lymph % (Auto) [place] % (Auto) Eos % (Auto) Baso % (Auto) Neut # (Auto) Lymph # (Auto) [place] # (Auto) Eos # (Auto) Baso # (Auto) PT INR APTT Sodium Potassium Chloride Carbon Dioxide BUN Creatinine Estimated GFR BUN/Creatinine Ratio Glucose Lactate 1.0 Calcium Total Bilirubin AST ALT Alkaline Phosphatase Total Protein Albumin Globulin Albumin/Globulin Ratio Lipase Procalcitonin 0.45 Urine RBC 1-5/hpf Urine WBC 5-10/hpf H Ur Squamous Epith Cells 1-5 /hpf Amorphous Sediment 2+ Urine Bacteria Moderate (10-30) H Urine Mucus 2+ H Ur Culture Indicated? Specimen cultured Assessment & Plan Assessment & Plan narrative: Assessment 1: RLQ pain of uncertain etiology x 1 day. Differential diagnosis includes c. dificile colits from patient's recent antibiotic use especially since her pain was preceded by 5 days of watery diarrhea. Her history of right salpingetomy, BTL, and electrocautery repair of her perforated uterus in 2016 may be making her CT exam difficult to read secondary to scar tissue. However, she does have lymphadenoapthy and a fairly robust white count, so cannot rule out a tubo-ovarian abscess or right adnexal abscess from PID. Malignancy is possible, but unlikely. A resolving small bowel obstruction is also possible in light of her abdominal surgery and scarring. The elevated WBC count could be reflective of her current HSV2 infect ion and unrelated to her abdominal pain. However, the likelihood that her abdominal pain is somehow related to her current HSV-2 needs to be explored as the symptoms follow each other chronologically. Plan: Will check c-dificile toxins and start broad-spectrum antibiotics to cover both PID and an intra-abdominal abscess including Streptococcus, Enterobacter, and anaerobes. Patient has already been treated for gonorrhea and chlamydia and outpaient testing was negative. Will expand to cover Clostridium difficile if testing is positive. Will trend CBC in the morning, if not improving, will proceed with exploratory laparoscopy. Otherwise, will watch downward trend and repeat imaging studies when appropriate to ensure resolution. Pain control with IV morphine as needed. Assessment 2: Diarrhea x 5 days, as above. 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 Assessment 4: DVT Phrophylaxix, lovenox. Assessment 5: Full code. Quality VTE Deep Vein Thrombosis/Pulmonary Embolism Present on Admission: No
[2019-04-19] MEDS: DEXTROSE 5%-0.45% NS 1,000 ML 100 ML IV (22:06)
--- NOTE | 2019-04-19 22:45 | PC.NURSE ---
Admit/Evening Shift Note- Patient arrived to room via stretcher from ER at 1815. Patient walked on her own from stretcher to bed with steady gait noted. Admit questions completed, home medications reviewed, and physical assessment done. Oriented patient to bed and bed controls, room, bathroom, lights, phone, menu, and call haney/tv remote. Patient complained of abdominal pain. PRN IV Morphine given as ordered. PAtient tolerated with no s/s of ASE noted. Safety measures in place. Patient agrees to call for assistance. Call haney and phone within reach. Will continue to monitor.
[2019-04-19 23:28] LABS: Pregnancy Test Serum,Qual Negative (Negative)
[2019-04-20] VITALS (17 sets, daily range): BP systolic 99–155; BP diastolic 59–85; PULSE 81–127; RESP 12–27; TEMP 36.3–38.4; O2SAT 94–100; BMI 35.7
--- NOTE | 2019-04-20 | PATH_ITS ---
[facility] Accession Number: [id number] . 01 Material submitted: . PART A: appendix - APPENDIX PART B: fallopian tube - RIGHT PARTIAL FALLOPIAN TUBE . 01 Clinical history: . LOWER RT QUAD PAIN/N/V/FEVER LAST NIGHT . 01 Diagnosis: A. Appendix, Appendectomy: Acute appendicitis with severe suppurative serositis. Negative for dysplasia and malignancy. . B. Right Partial Fallopian Tube, Partial Salpingectomy: Severe acute transmural salpingitis with suppurative serositis. Negative for dysplasia and malignancy. MRV 04/25/20192032 Local . 01 Comment: There is no gross or microscopic evidence of appendiceal wall rupture. . 01 Electronically signed: . Madison Galvez MD, Pathologist NPI- [id number] . 01 Gross description: . (A) Received in formalin, labeled appendix, is an intact appendix (length-5.2 cm, diameter-0.6 cm) with resendiz-pink smooth and shiny serosa and attached mesoappendix (up to 2.0 cm in depth). The resection margin is received opened. The lumen contains clear colorless fluid. The wall is up to 0.2 cm thick. No nodules, masses or lesions are identified. The resection margin is inked blue. Section code: (A1) resection margin en face and four additional access services representative serial sections; (A2) one-half of the bivalved tip. Additional sections: (A3, A4) remaining appendix. (B) Received in formalin, labeled right partial fallopian tube, is a fimbriated fallopian tube segment in two pieces (length-6.5 cm, diameter-0.7 cm) with resendiz-ames exudate covered serosa and a ames unremarkable lumen. Section code: (B1-B3) access services representative serial sections; (B4-B5) fimbria, bivalved, entirely submitted. ([id number]) Additional sectons: (B6, B7) additional access services representative serial sections. ([id number]) /[facility] 04/24/2019 1541 Local . 01 Pathologist provided ICD-10: N70.03, K35.80 . 01 CPT . 991042, [id number] Performed at: 01 [facility] [address] [place] [address] [id number] MD Kendall Thompson MD Phone: [phone]
--- NOTE | 2019-04-20 00:05 | PC.NURSE ---
Patient is alert and oriented. Breath sounds CTA with RA sat of 96%; reports increase in abdominal pain with deep breathing. HRR but tachy at 118 bpm but has been tachy consistently since admission. Denies nausea. BT present and abdomen is soft but tender. States pain is throughout abdomen but worst is located in LLQ. States she had diarrhea earlier today but none since. Denies dysuria, frequency or urgency. Is able to move self in bed; SBA when up to bathroom. Fall risk score is moderate; verbalizes agreement to call for assist prior to getting out of bed.
[2019-04-20] MEDS: MORPHINE 2 MG/ML INJ IV ×3 (03:11→11:05)
[2019-04-20] MEDS: PANTOPRAZOLE 20 MG TABLET PO (05:49)
[2019-04-20 06:04] LABS: Add Manual Diff / Slide Review NO; Basophils Absolute Auto 100 /uL (0-100); Basophils Percent Auto 0.4 % (0-2); Eosinophils Absolute Auto 0 /uL (0-450); Eosinophils Percent Auto 0.1 % (2-4); Hematocrit 31.9 % (36-46); Hemoglobin 10.6 g/dL (12.0-16.0); Lymphocytes Absolute Auto 3300 /uL (1100-4500); Lymphocytes Percent Auto 16.1 % (25-40); Mean Corpuscular HGB Conc 33.4 % (30-36); Mean Corpuscular Hemoglobin 29.4 PG (26-34); Mean Corpuscular Volume 88.2 fL (80-100); Monocytes Absolute Auto 900 /uL (0-900); Monocytes Percent Auto 4.6 % (3-14); Neutrophils Absolute Auto 16100 /uL (1500-7000); Neutrophils Percent Auto 78.8 % (50-75); Platelet Count 365 X10^3/uL (150-400); Red Blood Cell Count 3.61 X10^6/uL (4.0-5.2); White Blood Cell Count 20.5 X10^3/uL (4.5-11.0)
[2019-04-20 06:11] LABS: BUN Creatinine Ratio 14.3 (6-22); Blood Urea Nitrogen 10 mg/dL (7-17); Calcium 8.9 mg/dL (8.4-10.2); Carbon Dioxide 25 mmol/L (22-32); Chloride 103 mmol/L (98-107); Estimated Glomerular Filt Rate > 60.0 mL/min (>60); Glucose 141 mg/dL (70-100); HEMOLYSIS < 15 (0-50); Potassium 4.1 mmol/L (3.4-5.1); Sodium 135 mmol/L (137-145)
[2019-04-20] MEDS: DEXTROSE 5%-0.45% NS 1,000 ML 100 ML IV (07:54)
[2019-04-20] MEDS: metroNIDAZOLE 500 MG/100 ML PIGGYBACK 100 MG IV ×2 (08:24→17:56)
[2019-04-20] MEDS: ACYCLOVIR 400 MG TABLET PO (08:42)
--- NOTE | 2019-04-20 08:56 | PM.PN.1 ---
Subjective Subjective Date Patient Seen: 04/20/19 Time Patient Seen: 08:56 Interval history: Pt admitted last night for RLQ inflammatory process. She has not passed any gas or stool overnight. Says she feels the same or worse. Eating breakfast when I came in to see her. Exam Vital Signs (past 8 hours): - 04/20/19 03:25 04/20/19 07:30 Temperature 99.4 F 98.5 F Pulse Rate 120 H 119 H Respiratory Rate 19 16 Blood Pressure 114/60 119/66 Pulse Oximetry 94 96 Oxygen Delivery Method Room Air Oxygen Flow Rate 0 Narrative Exam Narrative: GENERAL: Alert, uncomfortable HENT: Normocephalic, atraumatic. Hearing intact. Oral mucosa is pink and moist. EYES: Conjunctiva pink, sclera white, no periorbital swelling. CARDIOVASCULAR: Regular rate. No pedal edema. RESPIRATORY: Normal respiratory rate, breathing comfortably on room air. GASTROINTESTINAL: Abdomen soft, rounded, TTP bilateral lower quadrants GENITALURINARY: No flank tenderness. MUSCULOSKELETAL: Equal tone and mass bilaterally. SKIN: Warm, dry, soft, appropriate color for ethnicity. No other lesions, rashes, or wounds. NEURO: Alert and Oriented X 3. Good coordination. No ataxia, or sensory deficits, or cognitive issues. PSYCH: Appropriate affect and mood. Objective Labs Result Diagrams: 04/20/19 05:28 04/20/19 05:28 Labs: Laboratory Results - last 24 hr 04/19/19 04/19/19 04/19/19 11:30 11:30 11:30 WBC 20.0 H RBC 4.04 Hgb 12.0 Hct 35.5 L MCV 87.8 MCH 29.8 MCHC 33.9 RDW 14.0 Plt Count 414 H Neut % (Auto) 81.7 H Lymph % (Auto) 12.6 L [place] % (Auto) 5.3 Eos % (Auto) 0.0 L Baso % (Auto) 0.4 Neut # (Auto) 20288 H Lymph # (Auto) 2500 [place] # (Auto) 1100 H Eos # (Auto) 0 Baso # (Auto) 100 PT 14.1 H INR 1.2 APTT 34 Sodium 136 L Potassium 4.1 Chloride 101 Carbon Dioxide 28 BUN 13 Creatinine 0.90 Estimated GFR > 60.0 BUN/Creatinine Ratio 14.4 Glucose 129 H Lactate Calcium 9.5 Total Bilirubin 1.0 AST 28 ALT 33 Alkaline Phosphatase 98 Total Protein 7.8 Albumin 4.2 Globulin 3.6 Albumin/Globulin Ratio 1.2 Lipase 54 Procalcitonin Serum , Qual Urine RBC Urine WBC Ur Squamous Epith Cells Amorphous Sediment Urine Bacteria Urine Mucus Ur Culture Indicated? 04/19/19 04/19/19 04/19/19 11:30 14:44 15:28 WBC RBC Hgb Hct MCV MCH MCHC RDW Plt Count Neut % (Auto) Lymph % (Auto) [place] % (Auto) Eos % (Auto) Baso % (Auto) Neut # (Auto) Lymph # (Auto) [place] # (Auto) Eos # (Auto) Baso # (Auto) PT INR APTT Sodium Potassium Chloride Carbon Dioxide BUN Creatinine Estimated GFR BUN/Creatinine Ratio Glucose Lactate Calcium Total Bilirubin AST ALT Alkaline Phosphatase Total Protein Albumin Globulin Albumin/Globulin Ratio Lipase Procalcitonin 0.45 Serum , Qual Negative Urine RBC 1-5/hpf Urine WBC 5-10/hpf H Ur Squamous Epith Cells 1-5 /hpf Amorphous Sediment 2+ Urine Bacteria Moderate (10-30) H Urine Mucus 2+ H Ur Culture Indicated? Specimen cultured 04/19/19 04/20/19 04/20/19 15:28 05:28 05:28 WBC 20.5 H RBC 3.61 L Hgb 10.6 L Hct 31.9 L MCV 88.2 MCH 29.4 MCHC 33.4 RDW 14.0 Plt Count 365 Neut % (Auto) 78.8 H Lymph % (Auto) 16.1 L [place] % (Auto) 4.6 Eos % (Auto) 0.1 L Baso % (Auto) 0.4 Neut # (Auto) 46522 H Lymph # (Auto) 3300 [place] # (Auto) 900 Eos # (Auto) 0 Baso # (Auto) 100 PT INR APTT Sodium 135 L Potassium 4.1 Chloride 103 Carbon Dioxide 25 BUN 10 Creatinine 0.70 Estimated GFR > 60.0 BUN/Creatinine Ratio 14.3 Glucose 141 H Lactate 1.0 Calcium 8.9 Total Bilirubin AST ALT Alkaline Phosphatase Total Protein Albumin Globulin Albumin/Globulin Ratio Lipase Procalcitonin Serum , Qual Urine RBC Urine WBC Ur Squamous Epith Cells Amorphous Sediment Urine Bacteria Urine Mucus Ur Culture Indicated? Assessment & Plan Assessment & Plan narrative: 33-year-old woman with RLQ inflammatory process. No improvement overnight on antibiotics. I discussed this patient last night with Dr. Hernandez, and again this morning. Ultimately I think we are both in agreement that the patient needs at least a diagnostic laparoscopy to determine the etiology of her symptoms and CT scan findings, especially since her white count is not improving at all, and her exam is the same or worse this morning. Unfortunately she was eating breakfast when I came in to see her this morning, so we cannot take her to the operating room for about 6 hours. We will hold her Lovenox, and make her NPO except for sips and ice chips for comfort. We will plan on diagnostic laparoscopy, with possible laparotomy possible bowel resection possible oophorectomy possible drain placement this afternoon. Recommendations: NPO except for sips of water and meds Broad spectrum IV antibiotics Ambulate as tolerated Daily labs Diagnostic laparoscopy with other possible interventions as mentioned above, to be done this afternoon Time Spent With Patient Time with patient: 25 - 35 minutes Quality VTE Deep Vein Thrombosis/Pulmonary Embolism Present on Admission: No
--- NOTE | 2019-04-20 10:49 | PC.NURSE ---
Addendum entered by Domenica Sawyer R.N. 04/20/19 15:32: Pt down to surgery at 1400. Original Note: Pt given 2mg of iv morphine for discomfort of 8/10 this am, she is sleeping now. into see patient and has put her npo with ice chips and sips with medications. She states that her pain is across her abdomen. Up with 1 Person stand by assist. Talking to now and pt will be going to surgery around 1500 for exploratory lap. Will medicate pt here again with 2mg of iv morphine after she is done talking to the
--- NOTE | 2019-04-20 10:56 | PM.PN.1 ---
Subjective Subjective Date Patient Seen: 04/20/19 Time Patient Seen: 10:56 Interval history: Uneventful night, pain persists, no change from yesterday. Has some mild nausea this morning. Denies vomiting. Has been ambulating up to the bathroom only. WBC trending up despite continued IV antibiotics. Care was coordinated with Dr. Mahajan, plan is to proceed with exploratory laparoscopy this afternoon with Drs. Mahajan and Mary. Patient has been made NPO. Exam Vital Signs (past 8 hours): - 04/20/19 03:25 04/20/19 07:30 04/20/19 10:47 Temperature 99.4 F 98.5 F Pulse Rate 120 H 119 H Respiratory Rate 19 16 Blood Pressure 114/60 119/66 Pulse Oximetry 94 96 100 Oxygen Delivery Method Room Air Oxygen Flow Rate 0 Narrative Exam Narrative: GENERAL: Alert and oriented, appearing stated age and in no acute distress. HEENT: Head normocephalic/atraumatic. LUNGS: Clear to ausculation bilaterally, no wheezes, rhonchi or rales. CV: Normal S1 and S2 with regular rate and rhythm, no audible murmurs, rubs or gallops. ABDOMEN: Soft, tenderness generalized to light touch. Point of maximal intensity over RLQ. Mildly distended, no organomegaly. Positive bowel sounds. : Normal female external genitalia, vulvar lesions now almost totally healed, one small healing ulcer on left labia majora can be visualized. EXTREMITIES: No clubbing, cyanosis, or edema. NEURO: Cranial nerves II through XII grossly intact, no focal deficits. PSYCH: Alert and oriented x 3. SKIN: No concerning lesions. Objective Labs Result Diagrams: 04/20/19 05:28 04/20/19 05:28 Labs: Laboratory Results - last 24 hr 04/19/19 04/19/19 04/19/19 11:30 11:30 11:30 WBC 20.0 H RBC 4.04 Hgb 12.0 Hct 35.5 L MCV 87.8 MCH 29.8 MCHC 33.9 RDW 14.0 Plt Count 414 H Neut % (Auto) 81.7 H Lymph % (Auto) 12.6 L [place] % (Auto) 5.3 Eos % (Auto) 0.0 L Baso % (Auto) 0.4 Neut # (Auto) 23508 H Lymph # (Auto) 2500 [place] # (Auto) 1100 H Eos # (Auto) 0 Baso # (Auto) 100 PT 14.1 H INR 1.2 APTT 34 Sodium 136 L Potassium 4.1 Chloride 101 Carbon Dioxide 28 BUN 13 Creatinine 0.90 Estimated GFR > 60.0 BUN/Creatinine Ratio 14.4 Glucose 129 H Lactate Calcium 9.5 Total Bilirubin 1.0 AST 28 ALT 33 Alkaline Phosphatase 98 Total Protein 7.8 Albumin 4.2 Globulin 3.6 Albumin/Globulin Ratio 1.2 Lipase 54 Procalcitonin Serum , Qual Urine RBC Urine WBC Ur Squamous Epith Cells Amorphous Sediment Urine Bacteria Urine Mucus Ur Culture Indicated? 04/19/19 04/19/19 04/19/19 11:30 14:44 15:28 WBC RBC Hgb Hct MCV MCH MCHC RDW Plt Count Neut % (Auto) Lymph % (Auto) [place] % (Auto) Eos % (Auto) Baso % (Auto) Neut # (Auto) Lymph # (Auto) [place] # (Auto) Eos # (Auto) Baso # (Auto) PT INR APTT Sodium Potassium Chloride Carbon Dioxide BUN Creatinine Estimated GFR BUN/Creatinine Ratio Glucose Lactate Calcium Total Bilirubin AST ALT Alkaline Phosphatase Total Protein Albumin Globulin Albumin/Globulin Ratio Lipase Procalcitonin 0.45 Serum , Qual Negative Urine RBC 1-5/hpf Urine WBC 5-10/hpf H Ur Squamous Epith Cells 1-5 /hpf Amorphous Sediment 2+ Urine Bacteria Moderate (10-30) H Urine Mucus 2+ H Ur Culture Indicated? Specimen cultured 04/19/19 04/20/19 04/20/19 15:28 05:28 05:28 WBC 20.5 H RBC 3.61 L Hgb 10.6 L Hct 31.9 L MCV 88.2 MCH 29.4 MCHC 33.4 RDW 14.0 Plt Count 365 Neut % (Auto) 78.8 H Lymph % (Auto) 16.1 L [place] % (Auto) 4.6 Eos % (Auto) 0.1 L Baso % (Auto) 0.4 Neut # (Auto) 02338 H Lymph # (Auto) 3300 [place] # (Auto) 900 Eos # (Auto) 0 Baso # (Auto) 100 PT INR APTT Sodium 135 L Potassium 4.1 Chloride 103 Carbon Dioxide 25 BUN 10 Creatinine 0.70 Estimated GFR > 60.0 BUN/Creatinine Ratio 14.3 Glucose 141 H Lactate 1.0 Calcium 8.9 Total Bilirubin AST ALT Alkaline Phosphatase Total Protein Albumin Globulin Albumin/Globulin Ratio Lipase Procalcitonin Serum , Qual Urine RBC Urine WBC Ur Squamous Epith Cells Amorphous Sediment Urine Bacteria Urine Mucus Ur Culture Indicated? 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 WBC trending up. Plan: Care coordinated with Dr. Mahajan, plan is to proceed with exploratory laparoscopy this afternoon. Patient has been made NPO in preparation for surgery. Will continue IV antibiotics and pain therapy. Repeat CBC and BMP in the morning. Assessment 2: Diarrhea x 5 days, as above. 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 Assessment 4: Anemia, normocytic/normochromic, new, mild. Likely dilutional, will trend CBC. Assessment 5: DVT Phrophylaxix, lovenox held for surgery. Assessment 6: Full code. Quality VTE Deep Vein Thrombosis/Pulmonary Embolism Present on Admission: No
[2019-04-20 12:42] LABS: Clostridium Difficile Tox PCR Negative for C. diff
[2019-04-20 12:49] LABS: Pregnancy Test Urine Negative (Negative)
[2019-04-20] MEDS: LACTATED RINGERS 1,000 ML 100 ML IV ×4 (14:04→18:17)
--- NOTE | 2019-04-20 15:46 | SUR.OPER ---
Supine on padded OR bed, head on pillow, bilateral arms padded and tucked at side, legs uncrossed, safety belt at thigh, tape over blanket over lower legs .
[2019-04-20] MEDS: BUPIVACAINE 0.25% W/ EPI 30 ML VIAL INJ (15:51)
--- NOTE | 2019-04-20 16:00 | CM.DANOTE ---
Addendum entered by Indigo King LPN 04/20/19 16:10: Dr. Hernandez is also consulting and is joining Dr. Mahajan as part of the surgical team. Original Note: Discharge Planning/Care Management DCP: assessment: case received, EMR reviewed. Discussed in Team Rounds. Pt is a 33 year old female who admitted last night to care of Dr. Buitrago. PCP: Dr. Huddleston. Consulting: Dr. Mahajan: [facility] Payer: Miguelina Stewart Admission status: INPT: confirmed by UR SONJA Jones. RN coordinator Janna stated this morning in Rounds that the plan at that point was to try treating pt medically and with IV antibiotics. Surgical intervention would be considered if this was not successful. Was updated at 1500 that pt was now being taken to surgery for an exploratory laparotomy. Will check in tomorrow. DCP team will follow as d/c needs after surgery become clearer. CM Discharge Assessment Start: 04/20/19 15:58 Freq: Status: Active Protocol: Document 04/20/19 15:58 ITV (Rec: 04/20/19 16:00 ITV [id number]) Discharge Planning Assessment Advance Directives? No History Provided By Medical Record Prior Living Arrangements House Household Members family Is patient alert and oriented? Yes Review Status In Process
[2019-04-20] MEDS: CEFTRIAXONE 2 GM/50 ML FROZ.PIGGY IV (16:15)
--- NOTE | 2019-04-20 18:35 | P.OP_ITS ---
Operative Date/Time/Diagnoses Date of procedure: 04/20/19 Time of procedure: 18:35 Pre-op diagnosis: Pelvic abscess Post-op diagnosis: same Procedure & Clinicians Procedure: See 's dictation Right partial salpingectomy Same procedure as scheduled: No Indications: Pelvic abscess Surgeon: Bere Mahajan Portable Pinch Riveter: Zoila Hernandez Anesthesia Type: General Operative Notes Findings: Right lower quadrant abscess involving the cecum and right tube and ovary Closure Type: primary Specimen(s): other (Cultures from abscess and peritoneal fluid, appendix and partial right fallopian tube) Procedure in detail: See Dr. Mahajan's operative note. The right fallopian tube was grasped with the [place]. The PK generator was used to cauterize and cut the mesosalpinx allowing removal of the distal portion of the right fallopian tube. Adequate hemostasis was noted. Post-operative Condition: stable Disposition: ICU Plan for aftercare: See Dr. Mahajan's dictation
--- NOTE | 2019-04-20 19:12 | PC.NURSE ---
Pt off unit during hand-off report. Per home insurance agent pt will be sent to ICU from PACU. Personal belongings given to Family to take to new room. Report received from day shift RN passed on to HEALTHCARE ARCHITECT Jo.
--- NOTE | 2019-04-20 19:24 | PM.OP.1 ---
Operative Date/Time/Diagnoses Date of procedure: 04/20/19 Time of procedure: 19:24 Pre-op diagnosis: Right lower quadrant abscess, unknown source Post-op diagnosis: other (Phelgmon of cecum and fallopian tube; intra abdominal abscess) Procedure & Clinicians Procedure: Diagnostic laparoscopy, exploratory laparotomy, appendectomy, right salpingectomy, washout and culture of peritoneal abscess, on table colonoscopy Same procedure as scheduled: Yes Indications: This is a 33-year-old woman who came in the hospital with several days of right lower quadrant pain. She had an abscess in the right lower quadrant on her CT scan. It was not clear whether this was coming from her tube and ovary, or from her colon. She was clinically deteriorating this morning, and so the decision was made to go ahead and do a diagnostic laparoscopy, to determine the etiology of her abscess and to proceed with necessary intervention to control the source of infection. The risks and benefits of laparoscopy, possible laparotomy, possible bowel resection, possible oopherectomy were discussed with the patient who desires to proceed with surgery. Surgeon: Bere Mahajan Head Sawyer: Zoila Hernandez Anesthesia Type: General Operative Notes Findings: Phlegmon of cecum; edematous right fallopian tube with surrounding phlegmon and abscess, adherent inflammatory rind with socked in cecum, fallopian tube, and loops of bowel, purlent fluid in the pelvis and between loops of bowel; no active perforation of colon or small bowel; normal colon lumen seen during on table colonoscopy Closure Type: primary Specimen(s): other (right fallopian tube, appendix, peritoneal abscess fluid) Applied: drain(s) (ISMAEL drain, NG tube) Estimated Blood Loss (mL): 50 Blood products transfused: none Procedure in detail: The patient was brought to the operating room and placed supine on the operating table. Sequential compression devices were placed on both legs and turned on. General anesthesia was induced the patient was intubated. Appropriate perioperative antibiotics were given. A Huggins catheter was placed in the bladder in sterile fashion. Both arms were tucked. The abdomen was prepped and draped in sterile fashion. Surgical time-out was conducted. Local anesthetic with 0.25% marcaine with epi was infiltrated in the skin in the infraumbilical fold. A 1 cm vertical incision was made at this location, and the umbilical stalk was grasped and elevated with Ravin clamps. A Veress needle was placed through the fascia and a saline drop test was used to confirm position. The abdomen was then insufflated with CO2 to 15 mm Hg. A 5 mm optical port was then placed in the infraumbilical position. A camera was placed through the port and I took a look around. There was no injury seen from port placement. In the lower abdomen there were dense adhesions of small intestine up to the abdominal wall. In the left lower abdomen a 5 mm port was placed after injection of local anesthetic. I then used a bowel grasper to gently push down the loops of bowel that were adherent to the abdominal wall. Once I had enough room I placed another 5 mm port in the suprapubic position. Using a Kittner and a bowel grasper the densely adherent loops of bowel were pushed down until an abscess was encountered. The murky purulent fluid was suctioned using a trap and was sent for culture. I then took down the adhesions between loops of bowel until all the bowel was free. We were then able to see the right tube and ovary. They appeared inflamed and edematous, but there was no clear evidence of pus coming out of the tube and ovary. We then took a look at the cecum. The appendix appeared fairly normal. There was a dense phlegmon adherent to the lateral side of the cecum, consistent with a sealed perforation. There was no evidence of an active cecal perforation. We then ran the entire small bowel from distal ileum to ligament of Treitz. There was purulent bile tinged fluid in the left gutter, with no clear source. A GelPort hand port was placed in the lower midline to assist with exploration of the abdomen. All the purulent fluid was suctioned free, and the entire abdomen was examined, with no additional source of perforation identified. The midline incision was extended above the umbilicus, and the gastrocolic ligament was opened, with no source of purulence identified coming from the stomach or the duodenum. An on-table colonoscopy was then performed with the assistance of Dr. Markham. The abdomen was filled with warm saline during the colonoscopy in order to see if any bubbles would come up indicating a micro perf of the colon. No abnormality was seen within the colon or rectum, and no gas bubbles were seen in the abdomen during the colonoscopy. The cecum and appendiceal orifice appeared normal intraluminally. At this point we felt that we had examined every possible source, and that the most likely thing is that the source a perforation was the cecum which had sealed itself with the dense phlegmon that was seen adherent to its lateral side. At this point we decided to go ahead and remove the right fallopian tube in order to send it for pathology, and to remove the appendix, anticipating the fact that if the patient ever has appendicitis it will be very difficult to reach the appendix given the likely adhesions that will form after the patient heals from this inflammatory process. An appendectomy was then performed placing 2 Vicryl ties at the base of the appendix. I then ligated the appendiceal artery and mesoappendix using Vicryl ties. I then divided the mesoappendix using bipolar cautery. I then divided the appendix using Metzenbaum scissors and passed off the table for pathology. I then cauterized the tip of the base of the appendix and dunked it inside using 3 0 silk sutures in a [id number] fashion. Dr. Hernandez then removed the right fallopian tube. See her dictation for that procedure. We then placed a 19 [place] Ricky drain through the left lower quadrant port site and brought it through the right side of the pelvis and all the way up the right gutter. The drain was secured at the skin level with 2-0 Nylon suture. We then injected the fascia with 0.25% Marcaine with epi, and closed the midline with running 0 Prolene suture. We then closed the skin with skin ney and a Monocryl suture in the umbilicus. Steri-Strips were placed over the umbilicus closure, and all the wounds were dressed with 4x4s and tape including the ISMAEL drain site. The suprapubic port site was closed with skin ney and covered with a Band-Aid. The patient was then awakened from anesthesia, needle and sponge counts were correct x2 at the end the case. The patient was extubated by Dr. José and transferred to the PACU in stable condition Complications: none Post-operative Condition: stable Disposition: ICU (for epidural management)
--- NOTE | 2019-04-20 19:59 | P.PCN_ITS ---
Procedures Date/Time Date of procedure: 04/20/19 Time of procedure: 19:20 General Procedure description: Thoracic epidural for post-op pain control was performed for open diagnostic exploratory laparotomy at general surgeon (Dr. Bryan Mahajan) [facility]. Risks and benefits of procedure were discussed with patient prior to operation in pre-op holding. Procedure was performed in PACU after operation. Patient was positioned in right lateral decub position. ASA monitoring applied. No additional sedation was necessary in anesthesia emergence period. After time out was performed, sterile gloves, hat and mask were donned. Sterile skin prep was done with chlorhexidine and allowed to fully dry. Sterile drapes applied. T9-10 interspace palpated and marked. Skin was anesthetized with 1% lidocaine. Using an 18ga Lisseth needle and low resistance syringe with saline, the epidural was located at a depth of 8cm from a midline approach. Catheter was threaded to 13 cm at skin. After negative aspiration, 3mL of 1.5% lidocaine with epinephrine was injected. HR remained at 97 bpm. Patient reported no onset of numbness with test dose. Catheter secured with large Tegaderm and medipore tape. A 6mL bolus of 0.125% bupivacaine with 2mcg/ml fentanyl was given at 20:50. After 15 minutes, BP reduced from 120/70 to 108/63 with decrease in abd pain. HR remained in the 90s. Patient reported no parasthesias during the procedure. Well tolerated. Orders for 6mL/hr 0.125% bupi with fentanyl enter. Infusion to start in ICU after PACU.
[2019-04-20] MEDS: FENT 2MCG/ML BUPIV 0.125% EPI 200 MCG/100 ML PLAST..BAG 6 MCG EPIDURAL (20:27)
[2019-04-20] MEDS: ONDANSETRON 4 MG/2 ML INJ IV (20:45)
[2019-04-20] MEDS: DEXTROSE 5%-0.9% NS 1,000 ML 100 ML IV (21:22)
--- NOTE | 2019-04-20 21:34 | PC.NURSE ---
Pt. arrived to the unit from PACU via bed. Pt. is alert and oriented, has NGT to left nare and connected to LIS by PACU nurse. Pt. was nauseous, Zofran given. Pt. denies pain but does have an epidural gtt at 6 ml/hr. Epidural site has small amt. sanguinous leakage otherwise catheter is intact. Pt. able to lift both legs, no numbness or tingling. Oriented to , call light use.
[2019-04-21] VITALS (7 sets, daily range): BP systolic 99–128; BP diastolic 50–75; PULSE 80–109; RESP 14–19; TEMP 36.2–37.6; O2SAT 93–99
[2019-04-21] MEDS: metroNIDAZOLE 500 MG/100 ML PIGGYBACK 100 MG IV ×4 (00:35→23:50)
[2019-04-21 05:14] LABS: Hematocrit 31.8 % (36-46); Hemoglobin 10.6 g/dL (12.0-16.0); Mean Corpuscular HGB Conc 33.5 % (30-36); Mean Corpuscular Hemoglobin 29.5 PG (26-34); Mean Corpuscular Volume 88.2 fL (80-100); Platelet Count 379 X10^3/uL (150-400); Red Cell Distribution Width 13.8 % (11.6-14.8); White Blood Cell Count 18.9 X10^3/uL (4.5-11.0)
[2019-04-21 05:25] LABS: BUN Creatinine Ratio 13.3 (6-22); Blood Urea Nitrogen 8 mg/dL (7-17); Calcium 8.3 mg/dL (8.4-10.2); Carbon Dioxide 26 mmol/L (22-32); Chloride 104 mmol/L (98-107); Estimated Glomerular Filt Rate > 60.0 mL/min (>60); Glucose 180 mg/dL (70-100); HEMOLYSIS < 15 (0-50); Magnesium 1.9 mg/dL (1.6-2.3); Potassium 4.3 mmol/L (3.4-5.1); Sodium 134 mmol/L (137-145)
--- NOTE | 2019-04-21 05:25 | PC.NURSE ---
Dr. Mahajan in the unit - updated on overnight events, or lack thereof. Reports she will be back around 0900 to see patient. Pt stable, pain free with epidural infusion per orders. UO 550 mL this shift. Ricky drain with 45 mL serosanguinous drainage. NGT to LIWS - no output noted this shift. Denies nausea. No acute changes overnight.
[2019-04-21 05:30] LABS: Neutrophils Absolute Manual 16065 /uL (3000-5900); Total Cells Counted 100
[2019-04-21 05:31] LABS: RBC Morphology Normal Morphology
[2019-04-21] MEDS: MAGNESIUM SULFATE 2 GM/50 ML PIGGYBACK IV (06:18)
[2019-04-21] MEDS: DEXTROSE 5%-0.9% NS 1,000 ML 100 ML IV (08:22)
[2019-04-21] MEDS: FENT 2MCG/ML BUPIV 0.125% EPI 200 MCG/100 ML PLAST..BAG 6 MCG EPIDURAL ×2 (09:00→23:51)
[2019-04-21] MEDS: PANTOPRAZOLE 40 MG VIAL IV (09:12)
[2019-04-21] MEDS: ACYCLOVIR 400 MG TABLET PO ×3 (09:12→20:14)
[2019-04-21] MEDS: ENOXAPARIN 40 MG/0.4 ML SYRINGE SUBCUT (09:28)
--- NOTE | 2019-04-21 10:00 | P.PN_ITS ---
Subjective Subjective Date Patient Seen: 04/21/19 Time Patient Seen: 10:00 Interval history: Patient is status post a diagnostic laparoscopy, exploratory laparotomy, appendectomy, right salpingectomy, washout and culture of peritoneal abscess and on-table colonoscopy that occurred yesterday evening. She is feeling tired this morning, pain is controlled with medications. ISMAEL drain is in place, draining serosanguineous fluid. Huggins in place, urine is concentrated. OG tube attached to suction. She is sitting up this morning. Has been passing flatus. No bowel movement. Diet has not been advanced, NPO, she denies nausea of vomiting. Oxygen per nasal cannula in place, 2 L, sats in the low 90s. Exam Vital Signs (past 8 hours): - 04/21/19 03:55 04/21/19 04:49 04/21/19 08:00 Temperature 97.4 F L 99.6 F Pulse Rate 88 100 H 80 Respiratory Rate 16 16 15 Blood Pressure 107/57 L 105/52 L 99/50 L Pulse Oximetry 97 99 93 Oxygen Delivery Method Nasal Cannula Oxygen Flow Rate 2 Narrative Exam Narrative: GENERAL: Alert and oriented, appearing stated age and in no acute distress. HEENT: Head normocephalic/atraumatic. OG in place. LUNGS: Clear to ausculation bilaterally, no wheezes, rhonchi or rales. CV: Normal S1 and S2 with regular rate and rhythm, no audible murmurs, rubs or gallops. ABDOMEN: Soft, dressings in place, clean, dry, intact. ISMAEL drain in place, draining serosanguineous fluid. Tenderness appropriate. Non-distended. Hypoactive bowel sounds. EXTREMITIES: No clubbing, cyanosis, or edema. NEURO: Cranial nerves II through XII grossly intact, no focal deficits. PSYCH: Alert and oriented x 3. SKIN: No concerning lesions. Objective Labs Result Diagrams: 04/21/19 04:47 04/21/19 04:47 Labs: Laboratory Results - last 24 hr 04/20/19 04/20/19 04/20/19 09:44 12:30 20:49 WBC RBC Hgb Hct MCV MCH MCHC RDW Plt Count Total Counted Seg Neutrophils % Band Neutrophils % Lymphocytes % (Manual) Monocytes % (Manual) Neutrophils # (Manual) RBC Morphology Sodium Potassium Chloride Carbon Dioxide BUN Creatinine Estimated GFR BUN/Creatinine Ratio Glucose Calcium Magnesium Urine Test Negative Nasal Screen MRSA (PCR) Negative for mrsa C. difficile Tox (PCR) Negative for c. diff 04/21/19 04/21/19 04/21/19 04:47 04:47 04:47 WBC 18.9 H RBC 3.60 L Hgb 10.6 L Hct 31.8 L MCV 88.2 MCH 29.5 MCHC 33.5 RDW 13.8 Plt Count 379 Total Counted 100 Seg Neutrophils % 84.0 H Band Neutrophils % 1.0 L Lymphocytes % (Manual) 10.0 L Monocytes % (Manual) 5.0 Neutrophils # (Manual) 51939 H RBC Morphology Normal morphology Sodium 134 L Potassium 4.3 Chloride 104 Carbon Dioxide 26 BUN 8 Creatinine 0.60 Estimated GFR > 60.0 BUN/Creatinine Ratio 13.3 Glucose 180 H Calcium 8.3 L Magnesium 1.9 Urine Test Nasal Screen MRSA (PCR) C. difficile Tox (PCR) Assessment & Plan Assessment & Plan narrative: 33 yo F admitted for RLQ pain of uncertain etio logy, HD #3. Status post a diagnostic laparoscopy, exploratory laparotomy, appendectomy, right salpingectomy, washout and culture of peritoneal abscess, and on-table colonoscopy, by Drs. Mahajan, Mary, and Rashi, POD #1. Assessment 1: RLQ pain secondary to cecal and right fallopian tube phlegmon as well as intra-abdominal abscess. WBC trending down, afebrile. Temperature has been a bit low but now trending up and into the normal range. Blood pressures have been hypotensive since surgery and her urine is concentrated. Will give a 1 L bolus of fluid. H/H stable. Awaiting abscess cultures. Plan: Will continue broad-spectrum IV antibiotics and narrow after culture results return. Pain therapy as needed. Repeat CBC and BMP in the morning. Dr. Mahajan, general surgery, consulting, please see her note for post-operative care. Post-operative electrolyte targets per Dr. Mahajan are >4 for potassium and > 2 for magnesium. Potassium is at goal this morning; magnesium is slightly low at 1.9, Dr. Mahajan has given her 2 g of IV magnesium this morning. Will follow trends. Assessment 2: Diarrhea x 5 days, Clostridium difficile negative. Please see above. 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 Assessment 4: Anemia, normocytic/normochromic, new, mild, stable. Will trend CBC. Assessment 5: DVT Phrophylaxis, on SCDs and lovenox per Dr. Mahajan. Assessment 6: GI prophylaxis: Protonix 40 mg IV daily. Assessment 7: Full code. Quality VTE Deep Vein Thrombosis/Pulmonary Embolism Present on Admission: No
--- NOTE | 2019-04-21 10:45 | P.PN_ITS ---
Subjective Subjective Date Patient Seen: 04/21/19 Time Patient Seen: 10:45 Interval history: No acute events overnight. Pt slept. Passed small amount of gas and stool. Vomited immediately after surgery, but denies nausea since then. Pain well controlled. Pt has not been up to ambulate. Exam Vital Signs (past 8 hours): - 04/21/19 03:55 04/21/19 04:49 04/21/19 08:00 Temperature 97.4 F L 99.6 F Pulse Rate 88 100 H 80 Respiratory Rate 16 16 15 Blood Pressure 107/57 L 105/52 L 99/50 L Pulse Oximetry 97 99 93 Oxygen Delivery Method Room Air Oxygen Flow Rate 2 Narrative Exam Narrative: Exam Narrative: GENERAL: Alert, appears uncomfortable, but calm. Answers questions promptly and appropriately. Vital signs noted. EYES: Conjunctiva pink, sclera white CARDIOVASCULAR: Regular rate 100. No pedal edema. RESPIRATORY: Normal respiratory rate, breathing comfortably on room air. GASTROINTESTINAL: Abdomen soft, rounded, dressings c/d/i; ISMAEL drain serosanguinous; appropriate TTP for POD#1 SKIN: Warm, dry, soft, appropriate color for ethnicity. No other lesions, r ashes, or wounds. NEURO: Alert and Oriented X 3. No gross sensory deficits, or cognitive issues. PSYCH: Appropriate affect and mood. Objective Labs Result Diagrams: 04/21/19 04:47 04/21/19 04:47 Labs: Laboratory Results - last 24 hr 04/20/19 04/20/19 04/20/19 09:44 12:30 20:49 WBC RBC Hgb Hct MCV MCH MCHC RDW Plt Count Total Counted Seg Neutrophils % Band Neutrophils % Lymphocytes % (Manual) Monocytes % (Manual) Neutrophils # (Manual) RBC Morphology Sodium Potassium Chloride Carbon Dioxide BUN Creatinine Estimated GFR BUN/Creatinine Ratio Glucose Calcium Magnesium Urine Test Negative Nasal Screen MRSA (PCR) Negative for mrsa C. difficile Tox (PCR) Negative for c. diff 04/21/19 04/21/19 04/21/19 04:47 04:47 04:47 WBC 18.9 H RBC 3.60 L Hgb 10.6 L Hct 31.8 L MCV 88.2 MCH 29.5 MCHC 33.5 RDW 13.8 Plt Count 379 Total Counted 100 Seg Neutrophils % 84.0 H Band Neutrophils % 1.0 L Lymphocytes % (Manual) 10.0 L Monocytes % (Manual) 5.0 Neutrophils # (Manual) 76734 H RBC Morphology Normal morphology Sodium 134 L Potassium 4.3 Chloride 104 Carbon Dioxide 26 BUN 8 Creatinine 0.60 Estimated GFR > 60.0 BUN/Creatinine Ratio 13.3 Glucose 180 H Calcium 8.3 L Magnesium 1.9 Urine Test Nasal Screen MRSA (PCR) C. difficile Tox (PCR) Assessment & Plan Assessment and plan (1) Intra-abdominal abscess: Problem details: 33 yo woman POD#1 s/p laparoscopic converted to open abdominal exploration for RLQ abscess, washout, source control of infection, appendectomy, right salpingectomy, and drain placement. WBC coming down, vitals stable. Plan: Continue NGT for now Ambulate 20 minutes TID as tolerated Keep worley until epidural is removed Pain management/epidural per anesthesia Follow ISMAEL drain output Daily labs IV fluid hydration Electrolyte repletion Continue IV abx Ok for DVT ppx Current visit: Yes Status: Acute (2) Leukocytosis: Problem details: Improving; plan as above Current visit: Yes Status: Acute Quality VTE Deep Vein Thrombosis/Pulmonary Embolism Present on Admission: No
[2019-04-21] MEDS: ONDANSETRON 4 MG/2 ML INJ IV (11:23)
[2019-04-21] MEDS: SODIUM CHLORIDE 0.9% 1,000 ML 100 ML IV ×2 (11:23→23:50)
[2019-04-21] MEDS: SODIUM CHLORIDE 0.45% 1,000 ML 1000 ML IV (12:12)
[2019-04-21] MEDS: METOCLOPRAMIDE 10 MG/2 ML INJ IV (12:13)
--- NOTE | 2019-04-21 13:27 | PC.SBAR ---
SITUATION: C/o nausea after ambulating 50 ft [] BACKGROUND: POD 1 exp. lap, appendectomy, r salpingectomy, periotneal abscess, washout. [] ASSESSMENT: 1030- Assisted up to EOB with 1PA using log-roll technique and pillow to splint abd. Placed gait belt and provided fww and non skid socks. Instructed pt on use of supportive equipment. Pt able to walk out of room and back to chair with SBA. Denies numbness of legs. They just feel really tired. C/o nausea while walking, asks to go back to rm. Agreeable to sit up to chair. NGT reconnected to suction. Pt states nausea is still present but improving. 1100- Pt continues to report nausea, unrelieved by rest [] RECOMMENDATION: Assessed NGT to ensure suctioning appropriately. Placed call to Dr. Mahajan and reported pt with unrelieved nausea. Received orders for zofran and reglan with instruction to administer zofran first and then reglan if zofran is ineffective. Pt required reglan after ineffective zofran (see MAR). [] RESPONSE: Pt currently sitting up to chair, NGT to LIS, VSS. Resting eyes closed. Even/unlabored RR. Allowing rest period. Will re evaluate upon awakening. []
--- NOTE | 2019-04-21 14:47 | CM.DPC ---
DCP: continued: Case discussed in Team Rounds with RN coordinator Janan noting the pt went to the ICU setting after her surgery was completed last night because of thoracic epidural. EMR reviewed: op report by Dr. Mahajan confirms the surgical procedure as :open diagnostic exploratory laparotomy with post op dx of phelgmon of cecum and fallopian tube, intra-abdominal abscess with washout and cultures. Pt has been up a bit but hampered by nausea. P: DCP team to follow as post surgical recovery proceeds and check in with pt for assessment of d/c issues and options when she is medically a bit more stable and more is known.
[2019-04-21] MEDS: CEFTRIAXONE 2 GM/50 ML FROZ.PIGGY IV (16:02)
--- NOTE | 2019-04-21 20:41 | PC.NURSE ---
2030 - Pt up ambulating around the unit for the second time this shift. Reports increased abd pressure and ache with activity however continues to deny pain at rest. Pt denies nausea. Only c/o sore throat r/t NGT. RX via NGT clamped for absorption. Hortencia Carverg CDI. ISMAEL with serosangenous drainage. SCD's on. Call light in reach.
[2019-04-22] VITALS (10 sets, daily range): BP systolic 121–135; BP diastolic 54–79; PULSE 64–105; RESP 16–22; TEMP 36.2–37.2; O2SAT 94–97
[2019-04-22 05:03] LABS: Add Manual Diff / Slide Review NO; Basophils Absolute Auto 0 /uL (0-100); Basophils Percent Auto 0.2 % (0-2); Eosinophils Absolute Auto 0 /uL (0-450); Eosinophils Percent Auto 0.1 % (2-4); Hematocrit 27.9 % (36-46); Hemoglobin 9.4 g/dL (12.0-16.0); Lymphocytes Absolute Auto 2300 /uL (1100-4500); Lymphocytes Percent Auto 21.8 % (25-40); Mean Corpuscular HGB Conc 33.6 % (30-36); Mean Corpuscular Hemoglobin 29.8 PG (26-34); Mean Corpuscular Volume 88.6 fL (80-100); Monocytes Absolute Auto 600 /uL (0-900); Monocytes Percent Auto 5.5 % (3-14); Neutrophils Absolute Auto 7600 /uL (1500-7000); Neutrophils Percent Auto 72.4 % (50-75); Platelet Count 360 X10^3/uL (150-400); Red Blood Cell Count 3.15 X10^6/uL (4.0-5.2); Red Cell Distribution Width 13.9 % (11.6-14.8); White Blood Cell Count 10.6 X10^3/uL (4.5-11.0)
[2019-04-22 05:05] LABS: BUN Creatinine Ratio 12.9 (6-22); Blood Urea Nitrogen 9 mg/dL (7-17); Calcium 8.2 mg/dL (8.4-10.2); Carbon Dioxide 26 mmol/L (22-32); Chloride 107 mmol/L (98-107); Estimated Glomerular Filt Rate > 60.0 mL/min (>60); Glucose 114 mg/dL (70-100); HEMOLYSIS < 15 (0-50); Magnesium 2.2 mg/dL (1.6-2.3); Potassium 3.7 mmol/L (3.4-5.1); Sodium 139 mmol/L (137-145)
--- NOTE | 2019-04-22 06:39 | PC.NURSE ---
Patient quiet and dozing throughout night, states the epidural is effective for pain control, denies nausea, minimal assist with turning. T-max 99.0, HRR 100-105, RR 20, BP 120s/70s, SpO2 >94%, breath sounds dim in bases, encouraged CDB and I.S. use. 140ml bile drainage from NGT, total 30ml serous-sang drainage from Ricky drain. 525ml pink/yellow urine from Huggins. Abdominal dressings D/I.
[2019-04-22] MEDS: DEXTROSE 5%-0.45NS W/KCL 40MEQ 1,000 ML 125 MEQ IV (08:22)
[2019-04-22] MEDS: ACYCLOVIR 400 MG TABLET PO (08:23)
[2019-04-22] MEDS: ENOXAPARIN 40 MG/0.4 ML SYRINGE SUBCUT (08:23)
[2019-04-22] MEDS: metroNIDAZOLE 500 MG/100 ML PIGGYBACK 100 MG IV ×3 (08:23→23:52)
[2019-04-22] MEDS: PANTOPRAZOLE 40 MG VIAL IV (08:23)
--- NOTE | 2019-04-22 08:25 | P.PN_ITS ---
Subjective Subjective Date Patient Seen: 04/22/19 Time Patient Seen: 08:25 Interval history: Patient is doing well this morning, denies pain, feels better. Has been having ice chips, diet not yet advanced. Slept okay last night. Huggins in place, draining clear urine. Endorses flatus, no bowel movement. Exam Vital Signs (past 8 hours): - 04/22/19 04:52 Temperature 99.0 F Pulse Rate 102 H Respiratory Rate 20 Blood Pressure 128/79 Pulse Oximetry 94 Oxygen Delivery Method Room Air Oxygen Flow Rate 0 Narrative Exam Narrative: GENERAL: Alert and oriented, appearing stated age and in no acute distress. HEENT: Head normocephalic/atraumatic. NG in place. LUNGS: Clear to ausculation bilaterally, no wheezes, rhonchi or rales. CV: Normal S1 and S2 with regular rate and rhythm, no audible murmurs, rubs or gallops. ABDOMEN: Soft, dressings in place, clean, dry, intact. ISMAEL drain in place, draining serosanguineous fluid. Tenderness appropriate. Non-distended. Hypo active bowel sounds. EXTREMITIES: No clubbing, cyanosis, or edema. NEURO: Cranial nerves II through XII grossly intact, no focal deficits. PSYCH: Alert and oriented x 3. SKIN: No concerning lesions. Objective Labs Result Diagrams: 04/22/19 04:39 04/22/19 04:39 Labs: Laboratory Results - last 24 hr 04/22/19 04/22/19 04:39 04:39 WBC 10.6 RBC 3.15 L Hgb 9.4 L Hct 27.9 L MCV 88.6 MCH 29.8 MCHC 33.6 RDW 13.9 Plt Count 360 Neut % (Auto) 72.4 Lymph % (Auto) 21.8 L [place] % (Auto) 5.5 Eos % (Auto) 0.1 L Baso % (Auto) 0.2 Neut # (Auto) 7600 H Lymph # (Auto) 2300 [place] # (Auto) 600 Eos # (Auto) 0 Baso # (Auto) 0 Sodium 139 Potassium 3.7 Chloride 107 Carbon Dioxide 26 BUN 9 Creatinine 0.70 Estimated GFR > 60.0 BUN/Creatinine Ratio 12.9 Glucose 114 H Calcium 8.2 L Magnesium 2.2 Assessment & Plan Assessment & Plan narrative: 33 yo F admitted for RLQ pain of uncertain etiology, HD #4. Status post a diagnostic laparoscopy, exploratory laparotomy, appendectomy, right salpingectomy, washout and culture of peritoneal abscess, and on-table colonoscopy, by Drs. Mahajan, Mary, and Rashi, POD #2. Assessment 1: RLQ pain secondary to cecal and right fallopian tube phlegmon as well as intra-abdominal abscess. WBC normalized, afebrile. Cultures pending. Plan: Will continue broad-spectrum IV antibiotics and narrow after culture results return. Pain therapy as needed. Repeat CBC and BMP in the morning. Dr. Mahajan, general surgery, consulting, please see her note for post-operative care. Post-operative electrolyte targets per Dr. Mahajan are >4 for potassium and > 2 for magnesium. Potassium is low this morning; Dr. Mahajan has added K to her maintenance fluids. Magnesium normal today. Will follow trends. Assessment 2: Diarrhea x 5 days, Clostridium difficile negative. Please see above. Assessment 3: HSV2, has completed home acyclovir course, will stop. Assessment 4: Anemia, normocytic/normochromic, new, mild, stable. Will trend CBC. Assessment 5: DVT Phrophylaxis, on SCDs and lovenox per Dr. Mahajan. Assessment 6: GI prophylaxis: Protonix 40 mg IV daily. Assessment 7: Full code. Quality VTE Deep Vein Thrombosis/Pulmonary Embolism Present on Admission: No
--- NOTE | 2019-04-22 10:07 | P.PN_ITS ---
Subjective Subjective Date Patient Seen: 04/22/19 Time Patient Seen: 10:07 Interval history: No acute events overnight. Minimal coming out of NG tube. Pain well controlled. The patient passing some gas and stool. Exam Vital Signs (past 8 hours): - 04/22/19 04:52 04/22/19 08:30 Temperature 99.0 F 99 F Pulse Rate 102 H 96 H Respiratory Rate 20 20 Blood Pressure 128/79 135/78 Pulse Oximetry 94 96 Oxygen Delivery Method Room Air Oxygen Flow Rate 0 Narrative Exam Narrative: Exam Narrative: GENERAL: Alert, comfortable, calm. Answers questions promptly and appropriately. Vital signs noted. HEENT: NGT in place, removed during exam CARDIOVASCULAR: Regular rate 100. No pedal edema. RESPIRATORY: Normal respiratory rate, breathing comfortably on room air. GASTROINTESTINAL: Abdomen soft, rounded, incision c/d/i; ISMAEL drain serosanguinous; appropriate TTP SKIN: Warm, dry, soft, appropriate color for ethnicity. No other lesions, rashes, or wounds. NEURO: Alert and Oriented X 3. No gross sensory deficits, or cognitive issues. PSYCH: Appropriate affect and mood. Objective Labs Result Diagrams: 04/22/19 04:39 04/22/19 04:39 Labs: Laboratory Results - last 24 hr 04/22/19 04/22/19 04:39 04:39 WBC 10.6 RBC 3.15 L Hgb 9.4 L Hct 27.9 L MCV 88.6 MCH 29.8 MCHC 33.6 RDW 13.9 Plt Count 360 Neut % (Auto) 72.4 Lymph % (Auto) 21.[address] [place] % (Auto) 5.5 Eos % (Auto) 0.1 L Baso % (Auto) 0.2 Neut # (Auto) 7600 H Lymph # (Auto) 2300 [place] # (Auto) 600 Eos # (Auto) 0 Baso # (Auto) 0 Sodium 139 Potassium 3.7 Chloride 107 Carbon Dioxide 26 BUN 9 Creatinine 0.70 Estimated GFR > 60.0 BUN/Creatinine Ratio 12.9 Glucose 114 H Calcium 8.2 L Magnesium 2.2 Assessment & Plan Assessment and plan (1) Leukocytosis: Problem details: resolved; continue abx for 24 hours Current visit: Yes Status: Acute (2) Intra-abdominal abscess: Problem details: 33 yo woman POD#2 s/p laparoscopic converted to open abdominal exploration for RLQ abscess, washout, source control of infection, appendectomy, right salpingectomy, and drain placement. WBC normal now, vitals stable. Passing some gas and stool. Minimal NGT output. NGT removed today. Plan: Clear liquid diet this PM if no nausea during the day today Ambulate 20 minutes TID as tolerated Remove worley Pain management/epidural per anesthesia -- remove this evening Oxycodone/tylenol ordered for pain PRN after epidural is removed Follow ISMAEL drain output Daily labs IV fluid hydration Electrolyte repletion Continue IV abx for now Ok for DVT ppx Current visit: Yes Status: Acute Time Spent With Patient Time with patient: 25 - 35 minutes Quality VTE Deep Vein Thrombosis/Pulmonary Embolism Present on Admission: No
[2019-04-22] MEDS: ACETAMINOPHEN 325 MG TABLET 650 MG PO ×2 (12:59→22:40)
--- NOTE | 2019-04-22 15:15 | CM.DPC ---
DCP Cont: Met with patient today, she was sitting up in bed. Pleasant demeanor. Introduced self and role. Patient works at [employer]. Asked patient if she has support at home at discharge, and confirmed that she lives with her parents, and will have support from them. 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 Placed name on her board in this room. P: DCP to continue to follow closely. Goal is for home when she is medically stable. Freya Greer RN/Milling/Polishing Operator
[2019-04-22] MEDS: CEFTRIAXONE 2 GM/50 ML FROZ.PIGGY IV (16:03)
[2019-04-22] MEDS: FENT 2MCG/ML BUPIV 0.125% EPI 200 MCG/100 ML PLAST..BAG 6 MCG EPIDURAL (16:06)
[2019-04-22] MEDS: DEXTROSE 5%-0.45NS W/KCL 40MEQ 1,000 ML 100 MEQ IV (19:26)
--- NOTE | 2019-04-22 22:45 | PC.NURSE ---
charlette note pt up in chair most of shift, ambulated once with SBA. Pt tolerating clear liquids in small amounts. Pt says she feels full quickly. No emesis. Pt c/o 09/23 pain after getting back to bed. Medicated with Tylenol.
[2019-04-22] MEDS: OXYCODONE IR 5 MG TABLET PO (23:51)
[2019-04-23 02:56] VITALS: BP 126/70; PULSE 89; RESP 18; TEMP 36.7; O2SAT 95
[2019-04-23] MEDS: METOCLOPRAMIDE 10 MG/2 ML INJ IV (03:01)
[2019-04-23 04:55] LABS: Add Manual Diff / Slide Review NO; Basophils Absolute Auto 0 /uL (0-100); Basophils Percent Auto 0.6 % (0-2); Eosinophils Absolute Auto 0 /uL (0-450); Eosinophils Percent Auto 0.6 % (2-4); Hematocrit 28.5 % (36-46); Hemoglobin 9.5 g/dL (12.0-16.0); Lymphocytes Absolute Auto 2100 /uL (1100-4500); Lymphocytes Percent Auto 27.4 % (25-40); Mean Corpuscular HGB Conc 33.4 % (30-36); Mean Corpuscular Hemoglobin 29.5 PG (26-34); Mean Corpuscular Volume 88.5 fL (80-100); Monocytes Absolute Auto 600 /uL (0-900); Monocytes Percent Auto 7.8 % (3-14); Neutrophils Absolute Auto 4900 /uL (1500-7000); Neutrophils Percent Auto 63.6 % (50-75); Platelet Count 372 X10^3/uL (150-400); Red Blood Cell Count 3.22 X10^6/uL (4.0-5.2); White Blood Cell Count 7.7 X10^3/uL (4.5-11.0)
[2019-04-23 05:08] LABS: Blood Urea Nitrogen 5 mg/dL (7-17); Calcium 8.3 mg/dL (8.4-10.2); Carbon Dioxide 27 mmol/L (22-32); Chloride 103 mmol/L (98-107); Estimated Glomerular Filt Rate > 60.0 mL/min (>60); Glucose 127 mg/dL (70-100); HEMOLYSIS < 15 (0-50); Magnesium 1.9 mg/dL (1.6-2.3); Potassium 3.9 mmol/L (3.4-5.1); Sodium 137 mmol/L (137-145)
[2019-04-23] MEDS: DEXTROSE 5%-0.45NS W/KCL 40MEQ 1,000 ML 100 MEQ IV (06:07)
[2019-04-23] MEDS: MAGNESIUM SULFATE 2 GM/50 ML PIGGYBACK IV (06:44)
[2019-04-23] MEDS: ONDANSETRON 4 MG/2 ML INJ IV (06:51)
--- NOTE | 2019-04-23 07:17 | PC.NURSE ---
Patient dozed throughout night, Percolone given at midnight, declined dose in am when epidural removed, catheter intact, patient tolerated well. Does have nausea without emesis after ambulating, IV Reglan and Zofran given per prn. Voiding without difficulty, passing flatus and had small loose stool this am. Total 30ml serous-sang drainage from ISMAEL drain. VSS.
[2019-04-23 07:39] VITALS: BP 131/87; PULSE 95; RESP 14; TEMP 36.7; O2SAT 92
[2019-04-23] MEDS: OXYCODONE IR 5 MG TABLET PO ×4 (07:44→21:25)
--- NOTE | 2019-04-23 08:00 | P.PN_ITS ---
Subjective Subjective Date Patient Seen: 04/23/19 Time Patient Seen: 08:01 Interval history: passing gas and feeling better. mild increase in pain but controlled with pain oral pain meds. Exam Vital Signs (past 8 hours): - 04/23/19 02:56 04/23/19 07:39 Temperature 98.1 F 98.1 F Pulse Rate 89 95 H Respiratory Rate 18 14 Blood Pressure 126/70 131/87 Pulse Oximetry 95 92 Oxygen Delivery Method Room Air Oxygen Flow Rate 0 Narrative Exam Narrative: alert female in fatigued but comfortable Objective Labs Result Diagrams: 04/23/19 04:39 04/23/19 04:39 Labs: Laboratory Results - last 24 hr 04/23/19 04/23/19 04:39 04:39 WBC 7.7 RBC 3.22 L Hgb 9.5 L Hct 28.5 L MCV 88.5 MCH 29.5 MCHC 33.4 RDW 14.0 Plt Count 372 Neut % (Auto) 63.6 Lymph % (Auto) 27.4 [place] % (Auto) 7.8 Eos % (Auto) 0.6 L Baso % (Auto) 0.6 Neut # (Auto) 4900 Lymph # (Auto) 2100 [place] # (Auto) 600 Eos # (Auto) 0 Baso # (Auto) 0 Sodium 137 Potassium 3.9 Chloride 103 Carbon Dioxide 27 BUN 5 L Creatinine 0.50 L Estimated GFR > 60.0 BUN/Creatinine Ratio 10.0 Glucose 127 H Calcium 8.3 L Magnesium 1.9 Assessment & Plan Assessment & Plan narrative: intraabdominal abcess unkown etiology clinically much improved. as per surgeon. will follow along socially otherwise surgical management. Quality VTE Deep Vein Thrombosis/Pulmonary Embolism Present on Admission: No
--- NOTE | 2019-04-23 09:04 | PM.PN.1 ---
Subjective Subjective Date Patient Seen: 04/23/19 Time Patient Seen: 09:04 Interval history: Patient tolerated a clear diet last night. Had some nausea this morning. Was treated with antiemetic. Patient is passing gas regularly. Epidural catheter was removed this morning, and patient needed a pain pill about 2 hours after. Pain is reasonably well controlled at this time. Exam Vital Signs (past 8 hours): - 04/23/19 02:56 04/23/19 07:39 Temperature 98.1 F 98.1 F Pulse Rate 89 95 H Respiratory Rate 18 14 Blood Pressure 126/70 131/87 Pulse Oximetry 95 92 Oxygen Delivery Method Room Air Oxygen Flow Rate 0 Narrative Exam Narrative: GENERAL: Alert, comfortable, calm. Answers questions promptly and appropriately. Vital signs noted. HEENT: MMM CARDIOVASCULAR: Regular rate 95. No pedal edema. RESPIRATORY: Normal respiratory rate, breathing comfortably on room air. GASTROINTESTINAL: Abdomen soft, rounded, incision c/d/i; ISMAEL drain serosanguinous; appropriate TTP SKIN: Warm, dry, soft, appropriate color for ethnicity. No other lesions, rashes, or wounds. NEURO: Alert and Oriented X 3. No gross sensory deficits, or cognitive issues. PSYCH: Appropriate affect and mood. Objective Labs Result Diagrams: 04/23/19 04:39 04/23/19 04:39 Labs: Laboratory Results - last 24 hr 04/23/19 04/23/19 04:39 04:39 WBC 7.7 RBC 3.22 L Hgb 9.5 L Hct 28.5 L MCV 88.5 MCH 29.5 MCHC 33.4 RDW 14.0 Plt Count 372 Neut % (Auto) 63.6 Lymph % (Auto) 27.4 [place] % (Auto) 7.8 Eos % (Auto) 0.6 L Baso % (Auto) 0.6 Neut # (Auto) 4900 Lymph # (Auto) 2100 [place] # (Auto) 600 Eos # (Auto) 0 Baso # (Auto) 0 Sodium 137 Potassium 3.9 Chloride 103 Carbon Dioxide 27 BUN 5 L Creatinine 0.50 L Estimated GFR > 60.0 BUN/Creatinine Ratio 10.0 Glucose 127 H Calcium 8.3 L Magnesium 1.9 Assessment & Plan Assessment and plan (1) Intra-abdominal abscess: Problem details: 33 yo woman POD#3 s/p laparoscopic converted to open abdominal exploration for RLQ abscess, washout, source control of infection, appendectomy, right salpingectomy, and drain placement. WBC normal now, vitals stable. Tolerated clears last evening. Had some nausea this AM, but continues passing gas. Plan: Clear liquid diet; advance to fulls as tolerated Ambulate as much as tolerated Abdominal binder for comfort PRN Oxycodone/scheduled ibuprofen and tylenol ordered for pain Follow ISMAEL drain output Daily labs IV fluid 50mL DC IV abx Ok for DVT ppx 4 hours after epidural removed Dispo pending tolerates diet, pain controlled on PO pain med Current visit: Yes Status: Acute (2) Leukocytosis: Problem details: resolved x 2 days; source control achieved; DC antibiotics today Current visit: Yes Status: Acute Time Spent With Patient Time with patient: 25 - 35 minutes Quality VTE Deep Vein Thrombosis/Pulmonary Embolism Present on Admission: No
[2019-04-23] MEDS: IBUPROFEN 400 MG TABLET 800 MG PO ×3 (09:05→21:24)
[2019-04-23 11:00] VITALS: BP 126/73; PULSE 76; RESP 15; TEMP 36.9; O2SAT 96
[2019-04-23] MEDS: ENOXAPARIN 40 MG/0.4 ML SYRINGE SUBCUT (11:30)
[2019-04-23] MEDS: ACETAMINOPHEN 325 MG TABLET 650 MG PO ×3 (11:30→23:50)
[2019-04-23] MEDS: PANTOPRAZOLE 40 MG VIAL IV (11:30)
--- NOTE | 2019-04-23 14:01 | PC.NURSE ---
Day Shift Note Pt reports pain controlled with Tylenol/ibuprofen/oxycodone. Up walking in halls with FWW x2 this shift. Currently sitting up in chair. Abdominal binder applied per MD order. Tolerating bites of full liquids, denies nausea. Call light within reach, using appropriately make needs known.
[2019-04-23 16:17] VITALS: BP 132/77; PULSE 74; RESP 18; TEMP 37.1; O2SAT 97
[2019-04-23 20:45] VITALS: BP 132/73; PULSE 73; RESP 19; TEMP 37.1; O2SAT 99
[2019-04-23 23:59] VITALS: BP 141/86; PULSE 84; RESP 16; TEMP 36.8; O2SAT 97
[2019-04-24] MEDS: DEXTROSE 5%-0.45NS W/KCL 40MEQ 1,000 ML 50 MEQ IV (01:23)
[2019-04-24 04:51] VITALS: BP 125/82; PULSE 77; RESP 16; TEMP 36.9; O2SAT 97
[2019-04-24] MEDS: OXYCODONE IR 5 MG TABLET PO ×2 (06:29→09:29)
[2019-04-24] MEDS: ACETAMINOPHEN 325 MG TABLET 650 MG PO (06:29)
[2019-04-24] MEDS: IBUPROFEN 400 MG TABLET 800 MG PO (06:29)
[2019-04-24 07:47] LABS: Add Manual Diff / Slide Review NO; Basophils Absolute Auto 100 /uL (0-100); Basophils Percent Auto 0.9 % (0-2); Eosinophils Absolute Auto 100 /uL (0-450); Eosinophils Percent Auto 1.7 % (2-4); Hematocrit 30.8 % (36-46); Hemoglobin 10.4 g/dL (12.0-16.0); Lymphocytes Absolute Auto 2700 /uL (1100-4500); Lymphocytes Percent Auto 40.1 % (25-40); Mean Corpuscular HGB Conc 33.7 % (30-36); Mean Corpuscular Hemoglobin 29.6 PG (26-34); Mean Corpuscular Volume 87.8 fL (80-100); Monocytes Absolute Auto 400 /uL (0-900); Monocytes Percent Auto 5.5 % (3-14); Neutrophils Absolute Auto 3500 /uL (1500-7000); Neutrophils Percent Auto 51.8 % (50-75); Platelet Count 424 X10^3/uL (150-400); Red Blood Cell Count 3.51 X10^6/uL (4.0-5.2); Red Cell Distribution Width 13.6 % (11.6-14.8); White Blood Cell Count 6.7 X10^3/uL (4.5-11.0)
[2019-04-24 08:00] VITALS: BP 128/86; PULSE 89; RESP 16; TEMP 37; O2SAT 96
[2019-04-24 08:02] LABS: Blood Urea Nitrogen 3 mg/dL (7-17); Calcium 8.8 mg/dL (8.4-10.2); Carbon Dioxide 29 mmol/L (22-32); Chloride 104 mmol/L (98-107); Estimated Glomerular Filt Rate > 60.0 mL/min (>60); Glucose 112 mg/dL (70-100); HEMOLYSIS < 15 (0-50); Magnesium 1.9 mg/dL (1.6-2.3); Potassium 4.1 mmol/L (3.4-5.1); Sodium 136 mmol/L (137-145)
--- NOTE | 2019-04-24 09:41 | PM.PN.1 ---
Subjective Subjective Date Patient Seen: 04/24/19 Time Patient Seen: 09:41 Interval history: No acute events overnight. Pain well controlled. Tolerating PO. Passing gas and stool. Exam Vital Signs (past 8 hours): - 04/24/19 04:51 04/24/19 08:00 Temperature 98.4 F 98.6 F Pulse Rate 77 89 Respiratory Rate 16 16 Blood Pressure 125/82 128/86 Pulse Oximetry 97 96 Oxygen Delivery Method Room Air Oxygen Flow Rate 0 Narrative Exam Narrative: GENERAL: Alert, comfortable, calm. Answers questions promptly and appropriately. Vital signs noted. HEENT: MMM CARDIOVASCULAR: Regular rate 95. No pedal edema. RESPIRATORY: Normal respiratory rate, breathing comfortably on room air. GASTROINTESTINAL: Abdomen soft, rounded, incision c/d/i; ISMAEL drain serosanguinous; appropriate TTP SKIN: Warm, dry, soft, appropriate color for ethnicity. No other lesions, rashes, or wounds. NEURO: Alert and Oriented X 3. No gross sensory deficits, or cognitive issues. PSYCH: Appropriate affect and mood. Objective Labs Result Diagrams: 04/24/19 07:25 04/24/19 07:25 Labs: Laboratory Results - last 24 hr 04/19/19 04/24/19 04/24/19 16:04 07:25 07:25 WBC 6.7 RBC 3.51 L Hgb 10.4 L Hct 30.8 L MCV 87.8 MCH 29.6 MCHC 33.7 RDW 13.6 Plt Count 424 H Neut % (Auto) 51.8 Lymph % (Auto) 40.[address] [place] % (Auto) 5.5 Eos % (Auto) 1.7 L Baso % (Auto) 0.9 Neut # (Auto) 3500 Lymph # (Auto) 2700 [place] # (Auto) 400 Eos # (Auto) 100 Baso # (Auto) 100 Sodium 136 L Potassium 4.1 Chloride 104 Carbon Dioxide 29 BUN 3 L Creatinine 0.60 Estimated GFR > 60.0 BUN/Creatinine Ratio 5.0 L Glucose 112 H Calcium 8.8 Magnesium 1.9 C.trachomatis RNA (TMA) N.gonorrhoeae RNA (TMA) Assessment & Plan Assessment and plan (1) Intra-abdominal abscess: Problem details: 33 yo woman POD#4 s/p laparoscopic converted to open abdominal exploration for RLQ abscess, washout, source control of infection, appendectomy, right salpingectomy, and drain placement. WBC normal now, vitals stable. Tolerated fulls and solids PO. Continues passing gas and stool. Pain well controlled on PO pain meds. Plan: Low residual diet Ambulate as much as tolerated Abdominal binder for comfort PRN Oxycodone/scheduled ibuprofen and tylenol ordered for pain Follow ISMAEL drain output Daily labs IV fluid DC Dispo planning for today ISMAEL drain to be removed before discharge Current visit: Yes Status: Acute Time Spent With Patient Time with patient: 25 - 35 minutes Quality VTE Deep Vein Thrombosis/Pulmonary Embolism Present on Admission: No
--- NOTE | 2019-04-24 11:15 | P.DS_ITS ---
History of Present Illness History of Present Illness Date Patient Seen: 04/24/19 Time Patient Seen: 11:15 Chief complaint: lower rt quad pain/n&V/fever last night Narrative: This is a 33-year-old woman who came in the hospital 5 days ago with severe right lower quadrant pain, and an intra-abdominal abscess on CT scan. She was initially treated with IV antibiotics, but her white blood cell count continued to rise and her pain and clinical picture continued to worsen. Discharge Providers Provider Date of admission: 04/19/19 17:24 Discharge Date: 04/24/19 Primary care physician: Solomon Huddleston MD Discharge provider: Bere Mahajan MD Summary Hospital Course Discharge Diagnosis: Peritoneal abscess Hospital Course: So she was taken on hospital day 2 to the operating room and had a diagnostic laparoscopy which showed purulent bile tinged fluid in the right lower quadrant and between loops of bowel throughout the abdomen. We converted to open because the source could not be identified. We ran the entire bowel from the stomach to the sigmoid colon, and washed out all of the purulenc e. The only abnormalities other than the purulent fluid that was found were dense adhesions between loops of bowel, a thick phlegmon on the cecum, and a very erythematous and edematous right fallopian tube. No pus was coming out of the tube itself. The fallopian tube and appendix were removed. A colonoscopy was performed on the table which did not reveal any focal abnormality inside the colon to explain the abscess. A drain was placed, and the patient was kept on antibiotics for another couple of days, until her white blood cell count normalized, and her microbiology results returned. Her labs normalized, she had return of bowel function evidence by tolerating a p.o. diet and passing gas and stool. She initially had a thoracic epidural catheter which had been placed by anesthesia in the PACU. This was removed 2 days after surgery, and her pain was well controlled on Tylenol, ibuprofen, and oxycodone. The microbiology results showed no identifiable bacteria but many PMNs. Her pathology results still pending at the time of her discharge. Her overall presentation, OR findings, and recovery are consistent with a focal perforation of the cecum which sealed itself, which is often seen in the setting of a perforation by a swallowed objects such as a fishbone or toothpick. The other possibility is that this was a primary tubo-ovarian abscess, which involved the cecum by local inflammatory process. We expect to have more information when the pathology results return. Status at Discharge Cognitive/behavioral status at discharge: oriented Functional status at discharge: independent ambulation Overall status at discharge: other (Patient is eating and having bowel movements. She is requiring pain medication. She has dressings on her closed abdominal incisions.) Time Spent with Patient Time spent: Greater than 30 minutes Exam Vital Signs (past 8 hours): - 04/24/19 04:51 04/24/19 08:00 Temperature 98.4 F 98.6 F Pulse Rate 77 89 Respiratory Rate 16 16 Blood Pressure 125/82 128/86 Pulse Oximetry 97 96 Oxygen Delivery Method Room Air Oxygen Flow Rate 0 Narrative Exam Narrative: GENERAL: Alert, comfortable, calm. Answers questions promptly and appropriately. Vital signs noted. HEENT: MMM CARDIOVASCULAR: Regular rate 90. No pedal edema. RESPIRATORY: Normal respiratory rate, breathing comfortably on room air. GASTROINTESTINAL: Abdomen soft, rounded, incision c/d/i; ISMAEL drain serosanguinous, removed during exam. Steri-Strips placed over the drain site; appropriate TTP SKIN: Warm, dry, soft, appropriate color for ethnicity. No other lesions, rashes, or wounds. NEURO: Alert and Oriented X 3. No gross sensory deficits, or cognitive issues. PSYCH: Appropriate affect and mood. Objective Imaging CT scan - abdomen: Radiologist's impression: PROCEDURE: CT ABDOMEN PELVIS W CON 04/19/2019 INDICATIONS: rlq pain TECHNIQUE: After the administration of intravenous contrast, 5 mm thick sections acquired from the diaphragm to the symphysis. 5 mm coronal and sagittal reformats were acquired. For radiation dose reduction, the following was used: automated exposure control, adjustment of mA and/or kV according to patient size. COMPARISON: [facility], , US PELVIC COMPLETE, 04/19/2019, 12:51. FINDINGS: Image quality: Excellent. ABDOMEN: Lung bases: Lung bases are clear. Heart size is normal. Solid organs: Liver is normal in size and enhancement. Gallbladder is normal limits. Biliary system is non dilated. Pancreas enhances normally. Spleen is normal in size and enhancement. No adrenal nodules. Kidneys demonstrate normal size and enhancement, without hydronephrosis. Peritoneum and bowel: The appendix is visualized and is normal. Mild pericecal inflammatory changes are noted. There is mild cecal wall thickening. Mildly distended loops of fluid-filled small bowel noted in the right lower quadrant including the terminal ileum. Mild inflammatory changes noted adjacent to the right fallopian tube. No free air. A small amount of free fluid noted in the cul-de-sac of the pelvis. There is a small, approximately 2 cm in diameter fluid collection with partial peripheral enhancement situated between the cecum and the broad ligament which may represent early abscess. Nodes and vessels: No retroperitoneal or mesenteric adenopathy by size criteria. Aorta and inferior vena cava are normal in size. Miscellaneous: No ventral hernias. PELVIS: Genitourinary: Bladder wall thickness is normal. Miscellaneous: No inguinal hernias. Bilateral enlarged inguinal lymph nodes are noted. Bones: No suspicious bony lesions. No vertebral body compression fractures. IMPRESSION: 1. No evidence of appendicitis. 2. Nonspecific right lower quadrant inflammatory changes involving the cecum, loops of small bowel in the right fallopian tube. Differential includes colitis, inflammatory bowel disease, typhlitis or salpingitis. 3. 2 cm partially walled off right lower quadrant fluid collection situated between the cecum and the broad ligament concerning for early abscess. 4. Bilateral inguinal lymphadenopathy which could be reactive or neoplastic. 5. Findings discussed with Dr. Sage on 04/19/2019 at 1505 hrs. Dictated by: Rose Marie Jones MD, PhD on 04/19/2019 at 14:36 Approved by: Rose Marie Jones MD, PhD on 04/19/2019 at 15:07 Labs Result Diagrams: 04/24/19 07:25 04/24/19 07:25 Labs: Laboratory Results - last 24 hr 04/19/19 04/24/19 04/24/19 16:04 07:25 07:25 WBC 6.7 RBC 3.51 L Hgb 10.4 L Hct 30.8 L MCV 87.8 MCH 29.6 MCHC 33.7 RDW 13.6 Plt Count 424 H Neut % (Auto) 51.8 Lymph % (Auto) 40.1 H [place] % (Auto) 5.5 Eos % (Auto) 1.7 L Baso % (Auto) 0.9 Neut # (Auto) 3500 Lymph # (Auto) 2700 [place] # (Auto) 400 Eos # (Auto) 100 Baso # (Auto) 100 Sodium 136 L Potassium 4.1 Chloride 104 Carbon Dioxide 29 BUN 3 L Creatinine 0.60 Estimated GFR > 60.0 BUN/Creatinine Ratio 5.0 L Glucose 112 H Calcium 8.8 Magnesium 1.9 C.trachomatis RNA (TMA) N.gonorrhoeae RNA (TMA) Discharge Plan Discharge Plan Patient Disposition: Home Discharge Med Rec/Prescriptions Prescriptions: New acetaminophen 500 mg capsule 500 mg PO Q6HR Qty: 60 RF: 0 Bacid 1 billion cell- 250 mg Tablet 1 tab PO BIDWM Qty: 20 RF: 0 docusate sodium [DOK] 100 mg Capsule 100 mg PO BID Qty: 20 RF: 0 ibuprofen 800 mg tablet 800 mg PO TID PRN (Reason: painful procedure) Qty: 60 RF: 0 oxycodone 5 mg tablet 5 mg PO Q4H PRN (Reason: painful procedure) Qty: 30 RF: 0 Continued multivitamin Tablet 1 tab PO DAILY Qty: 0 RF: 0 Discontinued acyclovir 400 mg tablet 400 mg PO [id number] RF: 0 Follow up/Referrals: Solomon Huddleston MD [Primary Care Provider] - Bere Mahajan MD [Physician] - (FOLLOW UP APPOINTMENT IN 10 TO 14 DAYS) Provider Discharge Instructions Diet: Diet as Tolerated Diet comment: Keep well hydrated. Your appetite will come back gradually. Activity: Keep active. Walk around frequently. Avoid lifting over 10 lbs, and any activity that strains your abdominal wall. Other treatments: In two days, you may shower. You may remove the gauze dressings and bandaid, but leave ney and steri strips in place. It's ok to get the incisions wet with gentle soap and water. Avoid scrubbing. Avoid using any harsh cleansers such as peroxide, alcohol, or other antiseptics. Pat dry the incisions after showering. Replace a dry dressing if you would like to, or if there is any drainage from your incision. It is normal to see some clear or bloody drainage from the drain site. If you see spreading redness on the skin around your incisions, foul smelling or murky drainage, or you have a fever over 100, please call the doctor right away. Wean off of your pain medications gradually. Wear your abdominal binder for comfort. First wean off the narcotic pain medication by taking it less frequently, and increasing the time between doses. Next, wean off of Ibuprofen by taking half the dose and increasing the time between doses. Finally, wean off the the tylenol. Make sure you do not take more than 3000mg of Tylenol in any 24 hour period from all sources. There may be Tylenol in other medications such as cold remedies. Skin/Wound/Dressing Care Skin care: Do not use any creams, ointments or powders on your incisions. Report to your healthcare provider any signs of infection, such as:: chills, fever, night sweats, increased pain, unusual drainage and unusual redness Dressing: You may cover your incisions with a dry dressing or bandaid for the smaller ones. Change the dressing if it becomes wet or soiled. Visit Report/Discharge Packet Instructions: [facility]: Wound Care Stand Alone Forms: Work/Release Restrictions, Surgery Discharge Discharge Data Primary Care Provider: Solomon Huddleston VTE Deep Vein Thrombosis/Pulmonary Embolism Present on Admission: No
--- NOTE | 2019-04-24 11:27 | CM.DPC ---
DCP: continued: Case again received, EMR reviewed. Discussed in Team Rounds. Pt has now been discharged to home by Dr. Mahajan and with clinic followup. Review of RN Ruba's note shows she did leave for home setting this morning, parent driving her. Clinic followup planned.
--- NOTE | 2019-04-24 11:43 | PC.NURSE ---
PT DISCHARGED TO HOME WITH MOTHER AND FOLLOW UP APPT SCHEDULED AND FOLLOW UP SURGERY PLAN OF CARE-
== END 2019-04-24 11:49 | disposition home or self-care (01) | DRG 339 ==
LOC: ED 17:18 → AC 17:25 → ICU 04-21 15:36
PROVIDERS: Surgery; Admitting Provider Student in an Organized Health Care Education/Training Program; Emergency Provider Emergency Medicine; Family Provider Family Medicine; PCP Family Medicine; Visit Provider Student in an Organized Health Care Education/Training Program
PROC: 0DTJ0ZZ Resection of Appendix, Open Approach (ICD-10-PCS; CPT 49320; principal; 2019-04-20 15:00)
DX: K35.33 Acute appendicitis with perforation, localized peritonitis, and gangrene, with abscess (principal); N70.01 Acute salpingitis; A60.00 Herpesviral infection of urogenital system, unspecified; E87.6 Hypokalemia; R11.0 Nausea; D64.9 Anemia, unspecified
CPT/HCPCS: 36415; 44950; 58700; 74177; 76705; 76830; 76856; 80048; 80053; 81003; 81015; 81025; 83605; 83690; 83735; 84145; 84703; 85025; 85610; 85730; 87040; 87070; 87075; 87086; 87205; 87210; 87491; 87493; 87591; 87797; 96365; 96367; 96375; 99282; 99285; C9113; J0330; J0696; J1100; J1170; J1650; J1885; J2250; J2270; J2405; J2704; J2765; J3010; J7050; Q9967

== ENCOUNTER → 2020-12-04 14:41 | Outpatient (CLI) | payer OTHER, SELFPAY ==
[2019-04-19 17:34] VITALS: BMI 36.4
[2020-12-04] MEDS: COVID-19 VACC, Ad26(JANSSEN)/PF 0.5 ML IM (14:49)
== END ==
PROVIDERS: Family Provider Family Medicine; PCP Family Medicine; Visit Provider Internal Medicine
DX: Z23 Encounter for immunization (principal)
CPT/HCPCS: 0031A; 91303

== ENCOUNTER 2022-05-18 15:35 | Emergency (ER) | payer OTHER, MEDICAID, SELFPAY ==
[2019-04-19 17:34] VITALS: BMI 36.4
[2022-05-18 16:14] VITALS: BP 156/94; PULSE 104; RESP 20; TEMP 36.8; O2SAT 99; BMI 37.8
[2022-05-18 16:52] LABS: Appearance Urine UA CLEAR; Bilirubin Urine UA NEGATIVE (NEGATIVE); Color Urine UA YELLOW; Glucose Urine UA NEGATIVE (Negative); Ketones Urine UA 1+ (NEGATIVE); Leukocyte Esterase Urine UA NEGATIVE (NEGATIVE); Nitrite Urine UA NEGATIVE (Negative); Occult Blood Urine UA 2+ (Negative); Protein Urine UA TRACE (Negative); Specific Gravity Urine UA >=1.030 (1.000-1.035); Urobilinogen Urine UA 0.2 E.U./dL (0.2)
[2022-05-18 17:12] LABS: Amorphous Sediment Urine 1+; Bacteria Urine Moderate (10-30); Culture Indicated Urine Specimen Cultured; RBC Urine 5-10/HPF (0-5/HPF); Squamous Epithelial Cell Urine 10-30 /HPF (0-5/HPF); WBC Urine 0-1/HPF (0-5/HPF)
--- NOTE | 2022-05-18 17:43 | ED_ITS ---
HPI - Abdominal Pain General Chief Complaint: Abdominal Pain Stated Complaint: lower abd pain x6 days Time Seen by Provider: 05/18/22 15:39 Source: patient Mode of arrival: Ambulatory History of Present Illness HPI narrative: This is a 36-year-old female who endorses dysuria for the last 3 days, presents to the emergency department for worsening pain especially on the left and complains of ascending left-sided pelvic pain. She endorses chills, denies fever nausea, states that she started taking azo 2 days ago and drinking cranberry juice with fear of UTI. She has a past medical history of genital herpes, appendectomy, salpingectomy, right tubal ovarian abscess and uterine perforation IUD, patient states that her symptoms started to worsen today. She states that ibuprofen has been helpful at home, has not had any recently. She sees Dr. Huddleston for primary care. Denies any allergies to medications, denies any vomiting or nausea currently. She denies any abnormal vaginal discharge, states that her last menses was 2 weeks ago. Related Data Home Medications Medication Instructions Recorded Confirmed multivitamin 1 tab PO DAILY ##0 10/05/11 10/02/20 Previous Rx's Medication Instructions Recorded L.acidophilus-L.bulgar-B.bifid-S.thermoph 1 tab PO BIDWM #20 tabs 04/24/19 1 billion cell-250 mg tablet (Bacid) acetaminophen 500 mg capsule 500 mg PO Q6HR #60 caps 04/24/19 docusate sodium 100 mg capsule 100 mg PO BID #20 caps 04/24/19 (DOK) ibuprofen 800 mg tablet 800 mg PO TID PRN painful 04/24/19 procedure #60 tabs oxycodone 5 mg tablet 5 mg PO Q4H PRN painful procedure 04/24/19 #30 tabs cephalexin 500 mg capsule 500 mg PO QID 7 days #28 caps 05/18/22 phenazopyridine 100 mg tablet 100 mg PO TID PRN pain 6 doses #7 05/18/22 (Pyridium) tabs Allergies Allergy/AdvReac Type Severity Reaction Status Date / Time No Known Drug Allergies Allergy Verified 10/02/20 16:30 Review of Systems Review of Systems Narrative: Review of systems is negative for acute abnormalities unless otherwise noted in HPI Patient History Medical History Genital herpes Surgical History History of third molar tooth extraction Status post tubal ligation (10/09/15) Family History Grandfather Cancer Social History household members: family Smoking Status: Never smoker Smoking Status: Never smoker alcohol intake frequency: 0-2 drinks per day Substance Use Type: does not use Exam Narrative Exam Narrative: Reviewed vitals signs and nursing notes. General: cooperative, comfortable, in no acute distress, well groomed HEENT: symmetrical facial expressions, moist mucous membranes GI: abdomen soft, nontender to palpation, no CVA tenderness bilaterally, left- sided suprapubic tenderness nondistended, without masses, rebound tenderness or exquisite tenderness with exam. MSK: moves all extremities, neurovascularly intact, no weakness, normal tone Skin: brisk capillary refill, without pallor or erythema Neuro: normal speech and cognition, A&O x3, ambulatory, clear speech Initial Vital Signs Initial Vital Signs: Vital Signs Temperature 98.3 F 05/18/22 16:14 Pulse Rate 104 H 05/18/22 16:14 Respiratory Rate 20 05/18/22 16:14 Blood Pressure 156/94 H 05/18/22 16:14 Pulse Oximetry 99 05/18/22 16:14 Oxygen Delivery Method 05/18/22 16:14 Course Orders Ordered: ED Orders 05/18/22 16:20 UA Complete [Urinalysis and Microscopic] Stat Urine Culture Stat Discontinued Medications Cephalexin HCl (Cephalexin 250 Mg Capsule) 1,000 mg PO NOW ONE Stop: 05/18/22 17:33 Last Admin: 05/18/22 17:55 Dose: 1,000 mg Documented By: GERARDO Ketorolac Tromethamine (Ketorolac 10 Mg Tablet) 10 mg PO NOW ONE Stop: 05/18/22 17:34 Last Admin: 05/18/22 17:55 Dose: 10 mg Documented By: GERARDO Phenazopyridine HCl (Phenazopyridine 100 Mg Tablet) 100 mg PO NOW ONE Stop: 05/18/22 17:34 Last Admin: 05/18/22 17:56 Dose: 100 mg Documented By: GERARDO Vital Signs Vital signs: Vital Signs - 8 hr 05/18/22 16:14 05/18/22 17:56 Temperature 98.3 F Pulse Rate 104 H 85 Respiratory Rate 20 18 Blood Pressure 156/94 H 150/70 H Pulse Oximetry 99 98 Oxygen Delivery Method Room Air MDM - Abdominal Pain Lab Data Labs: Lab Results 05/18/22 Range/Units 16:20 Urine Color Yellow Urine Appearance Clear Urine pH 5.0 (4.5-8.0) Ur Specific [place] >=1.030 H (1.000-1.035) Urine Protein Trace H (Negative) Urine Glucose (UA) Negative (Negative) g/dL Urine Ketones 1+ H (NEGATIVE) Urine Occult Blood 2+ H (Negative) Urine Nitrate Negative (Negative) Urine Bilirubin Negative (NEGATIVE) Urine Urobilinogen 0.2 (0.2) E.U./dL Ur Leukocyte Esterase Negative (NEGATIVE) Urine RBC 5-10/hpf H (0-5/HPF) Urine WBC 0-1/hpf (0-5/HPF) Ur Squamous Epith Cells 10-30 /hpf H D (0-5/HPF) Amorphous Sediment 1+ Urine Bacteria Moderate (10-30) H (None) Ur Culture Indicated? Specimen cultured Point of care testing: Point of Care Testing Test Results Negative MDM Narrative Medical decision making narrative: This is a 36-year-old female presents to the emergency department with dysuria for 3 days, left-sided pelvic pain, urine was found to be cloudy, microscopy charlene ws moderate bacteria, RBCs with squamous epithelial contaminant. Patient states that her symptoms improved with azo 3 days ago and hydration, states that they return last night and has gotten progressively worse today. She is not had any nausea vomiting, states that ibuprofen is helpful. Denies any recent antibiotics, she does not have any CVA tenderness bilaterally. She was given 1 g of cephalexin in the emergency department for complicated UTI. She was mildly tachycardic, has not had antipyretics or pain medicine yet. She is given p.o. Toradol with her cephalexin and Pyridium for her symptoms. Urine is pending for culture, she denies any abnormal vaginal discharge or history of BV. Prescribed 7 days if q.i.d. cephalexin, Pyridium rhythm, encouraged follow-up with a test of cure with her PCP or over the walk-in clinic. Encouraged her to stay hydrated, follow up as needed for progressive symptoms. Patient is appropriate and amenable to discharge home. Vital signs are stable on repeat examination is unremarkable. Patient has been informed of results. Patient has been given strict return to ER precautions for any new or worsening symptoms. Patient understands to follow up closely with outpatient providers as instructed. Patient understands plan and agrees to discharge home. All questions and concerns answered at this time. Discharge Plan Departure Patient Disposition: Home Clinical Impression: Complicated urinary tract infection Instructions: Acute Cystitis Activity Restrictions/Additional Instructions: *You have been diagnosed with a bladder infection. Please take this antibiotic 4 times a day for the next 7 days, follow-up with a urine test to ensure that this has resolved. Please stay hydrated, take ibuprofen every 6-8 hours, Tylenol in addition to this for severe pain. The rest of your lab work looks okay, I hope that you start feeling better soon. Please return for any new or worsening symptoms. *What to do: *Please continue to take your regular medications as directed. [ x] New medication prescriptions sent to your pharmacy: [[facility]] [ ] New medication written as a paper prescription [ ] No new medications given *Please follow up with your primary care provider in 2-3 days, call for an appointment. Let them know you were seen in the Emergency Department and that we asked that you be seen for follow-up. We will electronically transmit a record of today's note if your PCP is in our system *If you do not have a primary care provider please contact [phone] to establish care with one of the [facility] primary care providers. *Return to Emergency Department if you should have any new, worsening, or concerning symptoms, such as [fever greater than 101F, chills, worsening pain, persistent vomiting or other bothersome symptoms]. Prescriptions: New cephalexin 500 mg capsule 500 mg PO QID 7 Days Qty: 28 0RF phenazopyridine [Pyridium] 100 mg tablet 100 mg PO TID PRN (Reason: pain) Qty: 7 0RF No Action multivitamin Tablet 1 tab PO DAILY Qty: 0 acetaminophen 500 mg capsule 500 mg PO Q6HR Qty: 60 0RF Rx Instructions: WEAN OFF OVER 1-2 WEEKS. Bacid 1 billion cell- 250 mg Tablet 1 tab PO BIDWM Qty: 20 0RF docusate sodium [DOK] 100 mg Capsule 100 mg PO BID Qty: 20 0RF ibuprofen 800 mg tablet 800 mg PO TID PRN (Reason: painful procedure) Qty: 60 0RF oxycodone 5 mg tablet 5 mg PO Q4H PRN (Reason: painful procedure) Qty: 30 0RF Referrals: Solomon Huddleston MD [Primary Care Provider] - Visit Report Forms: Patient Portal/API
[2022-05-18] MEDS: cephALEXin 250 MG CAPSULE 1000 MG PO (17:55)
[2022-05-18] MEDS: KETOROLAC 10 MG TABLET PO (17:55)
[2022-05-18 17:56] VITALS: BP 150/70; PULSE 85; RESP 18; O2SAT 98
[2022-05-18] MEDS: PHENAZOPYRIDINE 100 MG TABLET PO (17:56)
== END 2022-05-18 18:00 | disposition home or self-care (01) ==
PROVIDERS: Emergency Provider Nurse Practitioner Critical Care Medicine; Family Provider Family Medicine; PCP Family Medicine
DX: N39.0 Urinary tract infection, site not specified (principal); R10.2 Pelvic and perineal pain
CPT/HCPCS: 81001; 81025; 87086; 99283

== ENCOUNTER → 2023-03-03 13:08 | Outpatient (CLI) | payer OTHER, MEDICAID, SELFPAY ==
[2019-04-19 17:34] VITALS: BMI 36.4
== END ==
PROVIDERS: Family Provider Family Medicine; PCP Family Medicine; Visit Provider Registered Nurse
DX: R30.0 Dysuria (principal)
CPT/HCPCS: 81002; 87077; 87086; 87147

== ENCOUNTER 2024-03-03 15:57 | Emergency (ER) | payer OTHER, MEDICAID, SELFPAY ==
[2019-04-19 17:34] VITALS: BMI 36.4
[2024-03-03 16:02] VITALS: BP 161/83; PULSE 84; RESP 14; TEMP 37.3; O2SAT 100; BMI 36.8
--- NOTE | 2024-03-03 16:23 | DI.RAD.S_ITS ---
PROCEDURE: XR CHEST 1V INDICATIONS: Shortness of breath TECHNIQUE: One view of the chest was acquired. COMPARISON: None. FINDINGS: Surgical changes and devices: None. Lungs and pleura: Lungs are clear. No pleural effusions or pneumothorax. Mediastinum: Mediastinal contours appear normal. Heart size is normal. Bones and chest wall: No suspicious bony lesions. Overlying soft tissues appear unremarkable. IMPRESSION: No acute cardiopulmonary abnormality is seen. Approved by: Bal Kaiser M.D. on 03/03/2024 at 16:02
--- NOTE | 2024-03-03 16:27 | EKG_ITS ---
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
[2024-03-03 16:39] LABS: COVID19 -Nasal RAPID Negative (Negative)
[2024-03-03 16:40] LABS: Add Manual Diff / Slide Review NO; Basophils Absolute Auto 0 /uL (0-100); Basophils Percent Auto 0.6 % (0-2); Eosinophils Absolute Auto 100 /uL (0-450); Eosinophils Percent Auto 0.7 % (2-4); Hematocrit 38.7 % (36-46); Hemoglobin 13.1 g/dL (12.0-16.0); Lymphocytes Absolute Auto 2100 /uL (1100-4500); Lymphocytes Percent Auto 25.1 % (25-40); Mean Corpuscular HGB Conc 33.8 % (30-36); Mean Corpuscular Hemoglobin 29.9 PG (26-34); Mean Corpuscular Volume 88.4 fL (80-100); Monocytes Absolute Auto 600 /uL (0-900); Monocytes Percent Auto 6.9 % (3-14); Neutrophils Absolute Auto 5500 /uL (1500-7000); Neutrophils Percent Auto 66.7 % (50-75); Platelet Count 361 X10^3/uL (150-400); Red Blood Cell Count 4.38 X10^6/uL (4.0-5.2); Red Cell Distribution Width 13.6 % (11.6-14.8); White Blood Cell Count 8.3 X10^3/uL (4.5-11.0)
[2024-03-03 16:46] LABS: INR 1.1 (0.9-1.3); Prothrombin Time 12.7 SECONDS (9.4-12.5)
[2024-03-03 16:50] LABS: Lactate (Lactic Acid) 1.1 mmol/L (0.7-2.1)
[2024-03-03 16:52] LABS: Alanine Aminotransferase 22 IU/L (<35); Albumin 4.3 g/dL (3.5-5.0); Albumin Globulin Ratio 1.5 (1.0-2.8); Alkaline Phosphatase 54 U/L (38-126); Aspartate Aminotransferase 24 IU/L (14-36); BUN Creatinine Ratio 16.3 (6-22); Bilirubin Total 0.4 mg/dL (0.2-1.3); Blood Urea Nitrogen 13 mg/dL (7-17); Calcium 8.9 mg/dL (8.4-10.2); Carbon Dioxide 21 mmol/L (22-32); Chloride 109 mmol/L (98-107); Estimated Glomerular Filt Rate > 60 mL/min (>60); Globulin 2.8 g/dL (1.7-4.1); Glucose 114 mg/dL (70-100); HEMOLYSIS < 15 (0-50); Sodium 137 mmol/L (137-145); Total Protein 7.1 g/dL (6.3-8.2)
[2024-03-03 17:03] LABS: NT-proBNP (BNP-Adult 18+) < 20 pg/mL (<125); Troponin I < 0.012 ng/mL (0.01-0.034)
[2024-03-03 19:16] VITALS: BP 139/86; PULSE 67; RESP 16; TEMP 37; O2SAT 100
[2024-03-03 20:44] VITALS: BP 133/80; PULSE 61; O2SAT 99
[2024-03-03 21:00] VITALS: BP 133/81; PULSE 62; O2SAT 99
--- NOTE | 2024-03-03 21:07 | ED_ITS ---
HPI - Chest Pain General Chief Complaint: Chest Pain Stated Complaint: chest pain Time Seen by Provider: 03/03/24 21:05 Source: patient Mode of arrival: Ambulatory Limitations: no limitations History of Present Illness HPI narrative: Patient is a 38-year-old healthy female who presents today with heart palpitations. She reports that she woke up feeling some discomfort in her chest she went for a walk her watch noted that her heart rate was at 1:49 a.m. she says she was not exerting herself that significantly. When she stopped to rest it did come down pretty quickly. No prior history of asthma no history of blood clots. Not having any palpitations or pain now. She reports that walking into the emergency department she felt palpitations and elevated heart rate then as well. She has not had any recent travel no leg swelling or fever or chills. Overall feeling little bit better. Related Data Home Medications Medication Instructions Recorded Confirmed multivitamin 1 tab PO DAILY ##0 10/05/11 03/03/23 Previous Rx's Medication Instructions Recorded L.acidophilus-L.bulgar-B.bifid-S.thermoph 1 tab PO BIDWM #20 tabs 04/24/19 1 billion cell-250 mg tablet (Bacid) phenazopyridine 100 mg tablet 100 mg PO TID PRN pain 6 doses #7 05/18/22 (Pyridium) tabs Allergies Allergy/AdvReac Type Severity Reaction Status Date / Time No Known Drug Allergies Allergy Verified 03/03/23 12:54 Patient History Medical History (Updated 03/03/24 @ 21:51 by Maria C Sage DO) Genital herpes Surgical History History of third molar tooth extraction Status post tubal ligation (10/09/15) Family History Grandfather Cancer Social History household members: family Smoking Status: Never smoker Smoking Status: Never smoker alcohol intake frequency: 0-2 drinks per day Substance Use Type: marijuana Exam Initial Vital Signs Initial Vital Signs: Vital Signs Temperature 99.1 F 03/03/24 16:02 Pulse Rate 84 03/03/24 16:02 Respiratory Rate 14 03/03/24 16:02 Blood Pressure 161/83 H 03/03/24 16:02 Pulse Oximetry 100 03/03/24 16:02 Oxygen Delivery Method Room Air 03/03/24 16:02 GENERAL: Alert pleasant well-appearing 38-year-old female and in no acute distress. HEENT: Head atraumatic,EOMI, pupils reactive, face symmetric, moist mucous membranes CARDIOVASCULAR: Regular rate and rhythm without murmurs, rubs or gallops. RESPIRATORY: Breath sounds equal bilaterally, no wheezes rales or rhonchi. ABDOMEN: Soft, nontender. Normoactive bowel sounds all 4 quadrants. No guarding or rebound. EXTREMITIES: Normal range of motion, no clubbing or edema. Neurovascularly intact NEUROLOGICAL: Alert and oriented x4.Normal gait and speech. Cranial nerves II through XII grossly intact. SKIN: Warm, dry, no laceration, no petechiae, no rashes or lesions. Scores HEART Score Heart Score history: Slightly Suspicious Heart Score EKG: Normal Heart Score Age: < 45 years old Heart Score risk factors: No known risk factors Heart Score troponin: < or = to normal limit Heart Score Total: 0 Course Orders Ordered: ED Orders 03/03/24 21:21 D Dimer Stat Vital Signs Vital signs: Vital Signs - 8 hr 03/03/24 20:44 03/03/24 20:44 03/03/24 21:00 Pulse Rate 61 Respiratory Rate Blood Pressure 133/80 133/81 Pulse Oximetry 99 Oxygen Delivery Method 03/03/24 21:00 03/03/24 21:30 03/03/24 21:30 Pulse Rate 62 63 Respiratory Rate 20 Blood Pressure 143/68 H Pulse Oximetry 99 98 Oxygen Delivery Method 03/03/24 22:01 Pulse Rate 72 Respiratory Rate 18 Blood Pressure 142/76 H Pulse Oximetry 99 Oxygen Delivery Method Room Air MDM - Chest Pain Lab Data 03/03/24 16:36 03/03/24 16:36 Labs: Lab Results 03/03/24 03/03/24 03/03/24 Range/Units 16:09 16:36 21:21 WBC 8.3 (4.5-11.0) X10^3/uL RBC 4.38 (4.0-5.2) X10^6/uL Hgb 13.1 (12.0-16.0) g/dL Hct 38.7 (36-46) % MCV 88.4 (80-100) fL MCH 29.9 (26-34) PG MCHC 33.8 (30-36) % RDW 13.6 (11.6-14.8) % Plt Count 361 (150-400) X10^3/uL Neut % (Auto) 66.7 (50-75) % Lymph % (Auto) 25.1 (25-40) % [place] % (Auto) 6.9 (3-14) % Eos % (Auto) 0.7 L (2-4) % Baso % (Auto) 0.6 (0-2) % Neut # (Auto) 5500 (7605-6779) /uL Lymph # (Auto) 2100 (9070-5269) /uL [place] # (Auto) 600 (0-900) /uL Eos # (Auto) 100 (0-450) /uL Baso # (Auto) 0 (0-100) /uL PT 12.7 H (9.4-12.5) SECONDS INR 1.1 (0.9-1.3) D-Dimer 432 (<500) ng/ml Sodium 137 (137-145) mmol/L Potassium 4.0 (3.4-5.1) mmol/L Chloride 109 H (98-107) mmol/L Carbon Dioxide 21 L (22-32) mmol/L BUN 13 (7-17) mg/dL Creatinine 0.80 (0.52-1.04) mg/dL Estimated GFR > 60 (>60) mL/min BUN/Creatinine Ratio 16.3 (6-22) Glucose 114 H (70-100) mg/dL Lactate 1.1 (0.7-2.1) mmol/L Calcium 8.9 (8.4-10.2) mg/dL Total Bilirubin 0.4 (0.2-1.3) mg/dL AST 24 (14-36) IU/L ALT 22 (<35) IU/L Alkaline Phosphatase 54 (38-126) U/L Troponin I < 0.012 (0.01-0.034) ng/mL NT-Pro-B Natriuret Pep < 20 (<125) pg/mL Total Protein 7.1 (6.3-8.2) g/dL Albumin 4.3 (3.5-5.0) g/dL Globulin 2.8 (1.7-4.1) g/dL Albumin/Globulin Ratio 1.5 (1.0-2.8) SARS-CoV-2 (PCR) Negative (Negative) Imaging Data Chest x-ray: Radiologist's Impression: PROCEDURE: XR CHEST 1V INDICATIONS: Shortness of breath TECHNIQUE: One view of the chest was acquired. COMPARISON: None. FINDINGS: Surgical changes and devices: None. Lungs and pleura: Lungs are clear. No pleural effusions or pneumothorax. Mediastinum: Mediastinal contours appear normal. Heart size is normal. Bones and chest wall: No suspicious bony lesions. Overlying soft tissues appear unremarkable. IMPRESSION: No acute cardiopulmonary abnormality is seen. Approved by: Bal Kaiser M.D. on 03/03/2024 at 16:02 ECG Data Attestation: I personally reviewed and interpreted this ECG as follows: Interpretation: Normal sinus rhythm rate 70 IN interval 156 QRS [address] changes no T- wave inversions MDM Narrative Medical decision making narrative: Patient is a 38-year-old female presenting today with heart palpitations. Reports that she felt her heart racing up to at least 149. She has been in the waiting room most of her stay in the emergency department but she is currently in a normal sinus rhythm EKG has been reviewed without any ischemia. She has a low risk heart score. D-dimer was added Blood work has been reviewed overall reassuring no leukocytosis anemia or electrolyte abnormality D-dimer is less than 500 Chest xray reviewed no acute cardiopulmonary process Patient 38-year-old female who presents today with racing heart. She has elevated heart rate with minimal activity or exertion this is found on her watch. It is unclear what he has been doing in the emergency department she has been in the waiting room and on a monitor unfortunately. But she overall is not symptomatic feeling significantly better. She has not passed out. No reason for her to be dehydrated. She does not have any sort of infection. Unlikely to be pulmonary embolism she has a negative ear score and D-dimer less than 500. Does not sound cardiac in nature he has no family history of acute coronary syndrome the young age. No sign of infection or symptoms of infection. Recommended outpatient ZIO patch follow-up. YEARS Algorithm for Pulmonary Embolism (PE) from [employer] easily beat on 03/04/2024 All calculations should be rechecked by clinician prior to use RESULT SUMMARY: PE excluded YEARS algorithm rules out PE (0.43% with symptomatic VTE during 3-month follow- up) INPUTS: patient ?> 0 = No Clinical signs of DVT ?> 0 = No Hemoptysis ?> 0 = No PE most likely diagnosis ?> 0 = No D-dimer >=,000 ng/mL ?> 0 = No Discharge Plan Departure Patient Disposition: Home Clinical Impression: Heart palpitations Instructions: DI for Palpitations Activity Restrictions/Additional Instructions: *You have been diagnosed with palpitations *What to do: At this time please talk with Dr. Huddleston about ZIO patch *Continue to take medications as directed *Follow up with your primary care provider in 2-3 days or call [phone] *Return to ER if you should have increasing palpitations dizziness lightheadedness passing out or any new, worsening or concerning symptoms Prescriptions: No Action multivitamin Tablet 1 tab PO DAILY Qty: 0 Bacid 1 billion cell- 250 mg Tablet 1 tab PO BIDWM Qty: 20 0RF phenazopyridine [Pyridium] 100 mg tablet 100 mg PO TID PRN (Reason: pain) Qty: 7 0RF Referrals: Solomon Huddleston MD [Primary Care Provider] - Stand Alone Forms: Patient Portal/API
[2024-03-03 21:30] VITALS: BP 143/68; PULSE 63; RESP 20; O2SAT 98
[2024-03-03 21:39] LABS: D Dimer 432 ng/ml (<500)
[2024-03-03 22:01] VITALS: BP 142/76; PULSE 72; RESP 18; O2SAT 99
== END 2024-03-03 21:58 | disposition home or self-care (01) ==
PROVIDERS: Emergency Medicine; Emergency Provider Emergency Medicine; Family Provider Family Medicine; PCP Family Medicine
DX: R00.2 Palpitations (principal); R06.02 Shortness of breath; Z11.52 Encounter for screening for COVID-19
CPT/HCPCS: 71045; 80053; 83605; 83880; 84484; 85025; 85379; 85610; 87635; 93005; 99283; 99284

== ENCOUNTER → 2024-03-13 15:16 | Outpatient (CLI) | payer OTHER, MEDICAID, SELFPAY ==
[2019-04-19 17:34] VITALS: BMI 36.4
--- NOTE | 2024-03-13 15:17 | DI.NM.S_ITS ---
PROCEDURE: NM EXERCISE TREADMILL NON NUC COMPARISON: None. INDICATIONS: PRECORDIAL PAIN FINDINGS: The patient exercised for 9 minutes and 0 seconds reaching 101% of maximum predicted heart rate. Appropriate BP response to exercise. 10.1 METs, ATIYA +2%. No chest pain, no diagnostic ST changes, and no ectopy during exercise or recovery. IMPRESSION: Low risk, normal treadmill ECG only stress test from inducible ischemia standpoint. Fair exercise tolerance (ATIYA +2%). Dictated by: Suzanna Gomez MD on 03/13/2024 at 16:54 Approved by: Suzanna Gomez MD on 03/13/2024 at 16:55
== END ==
PROVIDERS: Family Provider Family Medicine; PCP Family Medicine; Referring Provider Family Medicine; Visit Provider Family Medicine
DX: R07.2 Precordial pain (principal)
CPT/HCPCS: 93017